=== PATIENT | male | born 1975 | race Caucasian/White ===

== ENCOUNTER → 2019-11-10 13:35 | Outpatient (BNVA) | payer SELFPAY | PROVIDERS: Family Provider Family Medicine; PCP Family Medicine; Visit Provider Anesthesiology | DX: M54.5 Low back pain (principal); M79.652 Pain in left thigh; M79.651 Pain in right thigh; M50.20 Other cervical disc displacement, unspecified cervical region; F17.210 Nicotine dependence, cigarettes, uncomplicated; Z71.6 Tobacco abuse counseling; Z79.891 Long term (current) use of opiate analgesic | CPT/HCPCS: 99214 ==

== ENCOUNTER → 2020-03-08 08:17 | Outpatient (BNVA) | payer SELFPAY | PROVIDERS: Family Provider Family Medicine; PCP Family Medicine; Visit Provider Anesthesiology | DX: M54.41 Lumbago with sciatica, right side (principal); M50.20 Other cervical disc displacement, unspecified cervical region; F17.200 Nicotine dependence, unspecified, uncomplicated; Z79.891 Long term (current) use of opiate analgesic | CPT/HCPCS: 99213; 99214 ==

== ENCOUNTER → 2020-05-08 09:08 | Outpatient (BNVA) | payer SELFPAY | PROVIDERS: Family Provider Family Medicine; PCP Family Medicine; Visit Provider Anesthesiology | DX: M54.5 Low back pain (principal); M50.20 Other cervical disc displacement, unspecified cervical region; Z79.891 Long term (current) use of opiate analgesic | CPT/HCPCS: 99213; 99214 ==

== ENCOUNTER → 2020-07-05 09:48 | Outpatient (BNVA) | payer SELFPAY | PROVIDERS: Family Provider Family Medicine; PCP Family Medicine; Visit Provider Anesthesiology | DX: M54.41 Lumbago with sciatica, right side (principal); M50.20 Other cervical disc displacement, unspecified cervical region; Z87.891 Personal history of nicotine dependence; Z71.6 Tobacco abuse counseling; Z79.891 Long term (current) use of opiate analgesic | CPT/HCPCS: 99214 ==

== ENCOUNTER → 2020-09-04 07:58 | Outpatient (BNVA) | payer SELFPAY | PROVIDERS: Family Provider Family Medicine; PCP Family Medicine; Visit Provider Anesthesiology | DX: M54.41 Lumbago with sciatica, right side (principal); M50.20 Other cervical disc displacement, unspecified cervical region; F17.200 Nicotine dependence, unspecified, uncomplicated; Z79.891 Long term (current) use of opiate analgesic | CPT/HCPCS: 99213; 99214 ==

== ENCOUNTER → 2020-11-05 10:35 | Outpatient (BNVA) | payer SELFPAY | PROVIDERS: Family Provider Family Medicine; PCP Family Medicine; Visit Provider Anesthesiology | DX: M54.41 Lumbago with sciatica, right side (principal); M50.20 Other cervical disc displacement, unspecified cervical region; F17.200 Nicotine dependence, unspecified, uncomplicated; Z79.891 Long term (current) use of opiate analgesic | CPT/HCPCS: 99213 ==

== ENCOUNTER → 2021-01-03 10:17 | Outpatient (BNVA) | payer SELFPAY | PROVIDERS: Family Provider Family Medicine; PCP Family Medicine; Visit Provider Anesthesiology | DX: G89.29 Other chronic pain (principal); M54.5 Low back pain; M50.20 Other cervical disc displacement, unspecified cervical region; F17.210 Nicotine dependence, cigarettes, uncomplicated; Z79.891 Long term (current) use of opiate analgesic | CPT/HCPCS: 99214 ==

== ENCOUNTER → 2021-02-20 08:21 | Outpatient (BNVA) | payer SELFPAY | PROVIDERS: Family Provider Family Medicine; PCP Family Medicine; Visit Provider Anesthesiology | DX: G89.29 Other chronic pain (principal); M50.20 Other cervical disc displacement, unspecified cervical region; M54.5 Low back pain; Z79.891 Long term (current) use of opiate analgesic | CPT/HCPCS: 99214 ==

== ENCOUNTER → 2021-05-02 09:40 | Outpatient (BNVA) | payer SELFPAY | PROVIDERS: Family Provider Family Medicine; PCP Family Medicine; Visit Provider Nurse Practitioner | DX: G89.29 Other chronic pain (principal); M54.5 Low back pain; M50.20 Other cervical disc displacement, unspecified cervical region; F17.210 Nicotine dependence, cigarettes, uncomplicated; Z79.891 Long term (current) use of opiate analgesic; Z71.6 Tobacco abuse counseling | CPT/HCPCS: 99215 ==

== ENCOUNTER → 2021-06-25 08:36 | Outpatient (BNVA) | payer SELFPAY | PROVIDERS: Family Provider Family Medicine; PCP Family Medicine; Visit Provider Anesthesiology | DX: G89.29 Other chronic pain (principal); M54.5 Low back pain; M50.20 Other cervical disc displacement, unspecified cervical region; Z87.891 Personal history of nicotine dependence; Z79.891 Long term (current) use of opiate analgesic | CPT/HCPCS: 99214 ==

== ENCOUNTER 2021-08-17 16:01 | Emergency (ER) | payer SELFPAY ==
[2021-08-17 16:07] VITALS: PULSE 73; RESP 20; TEMP 36.7; O2SAT 98; BMI 19.9
--- NOTE | 2021-08-17 16:27 | ECG_ITS ---
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 Measurements Intervals Laura Rate: 67 P: 46 CO: 151 QRS: 14 QRSD: 96 T: 50 QT: 383 QTc: 405 Interpretive Statements SINUS RHYTHM POSSIBLE LEFT ATRIAL ENLARGEMENT [-0.1mV P-WAVE IN V1/V2] No previous ECG available for comparison Electronically Signed On 08-19-2021 12:43:11 FLIGHT OPERATIONS INSPECTOR by Paige Vergara M.D. [id number]
--- NOTE | 2021-08-17 16:27 | XRR_ITS ---
PROCEDURE INFORMATION: Exam: XR Chest Exam date and time: 08/17/2021 4:27 PM Age: 45 years old Clinical indication: Pain; Chest pressure; Additional info: Cp TECHNIQUE: Imaging protocol: XR of the chest. Views: 1 view. COMPARISON: MRI Cervical Spine w/o* [id number] 10/16/2015 10:10 AM FINDINGS: Lungs: Calcified left hilar nodes and/or mediastinal nodes and/or lung granulomas consistent with old granulomatous disease. Mildly hyperaerated lungs consistent with deep inspiratory effort vs reactive airway disease vs mild COPD . Pleural spaces: Unremarkable. No pleural effusion. No pneumothorax. Heart/Mediastinum: Unremarkable. No cardiomegaly. Bones/joints: Unremarkable. XR/XR chest 1V portable [id number] IMPRESSION: Mildly hyperaerated lungs consistent with deep inspiratory effort vs reactive airway disease vs mild COPD . Radiation Dose CTDIVOL = (mGy): DLP = (mGy-cm)
--- NOTE | 2021-08-17 16:28 | ED_ITS ---
Documented by User: Royer Li MD 08/17/21 17:58 HPI - Chest Pain General: Chief Complaint: Chest Pain Stated Complaint: SOB AND CHEST PAINS Time Seen by Provider: 08/17/21 16:21 History of Present Illness: HPI narrative: 45-year-old male presents with chest pain. States started at rest approximately 2 hours prior to arrival. Is not exertional or pleuritic. He is PERC negative. Describes it as achiness does not radiate specifically does not radiate back. Denies any drug use. Denies lower extremity pain or swelling. Denies nausea vomiting fever cough. Review of Systems Narrative: - CONSTITUTIONAL: Denies weight loss, fever and chills. - HEENT: Denies changes in vision and hearing. - RESPIRATORY: Denies SOB and cough. - CV: As above - GI: Denies abdominal pain, nausea, vomiting and diarrhea. - : Denies dysuria and urinary frequency. - MSK: Denies myalgia and joint pain. - SKIN: Denies rash and pruritus. - NEUROLOGICAL: Denies headache, weakness, numbness and syncope. - PSYCHIATRIC: Denies suicidal ideation PFSH ED PFSH: Medical History Back pain, lumbosacral Chronic neck pain Encounter for long-term use of opiate analgesic Opioid contract exists Protrusion of cervical intervertebral disc Tobacco use disorder Family History Other CAD (coronary artery disease) Social History Second hand smoke exposure: Yes Alcohol intake: never History of recent travel: No Physical Exam Narrative: EXAM NARRATIVE: - GENERAL: Alert and oriented x 3. No acute distress. Well-nourished. - EYES: EOMI. Anicteric. - HENT: Atraumatic, no C-spine tenderness. Moist mucous membranes. No scleral icterus. No cervical lymphadenopathy. - LUNGS: Clear to auscultation bilaterally. No accessory muscle use. Equal lung sounds bilaterally. No respiratory distress. - CARDIOVASCULAR: Regular rate and rhythm. No murmur. No JVD. - ABDOMEN: Soft, non-tender and non-distended. Negative CVA tenderness bilaterally, no rebound or guarding, negative Hua sign. No palpable masses. - EXTREMITIES: No edema. Non-tender. -Back: Has scoliosis - SKIN: No rashes or lesions. Warm. - NEUROLOGIC: No meningismus or focal neurological deficits. CN II-XII grossly intact. - PSYCHIATRIC: Cooperative. Appropriate mood and affect. Course Vital Signs: Vital signs: Vital Signs Temperature 98.1 F 08/17/21 16:07 Pulse Rate 77 08/17/21 20:17 Respiratory Rate 18 08/17/21 20:17 Blood Pressure 129/77 08/17/21 20:17 Pulse Oximetry 98 08/17/21 20:17 MDM - Chest Pain MDM Narrative: Medical decision making narrative: 45-year-old presents due to chest pain. Physical exam unremarkable except for presence of scoliosis. He is PERC negative. EKG does not reveal any sign of acute ischemia or other acute abnormality. Lab work and imaging is currently pending. Patient signed out to Dr. Toro. Lab Data: Labs: Lab Results 08/17/21 08/17/21 08/17/21 16:33 16:33 16:33 WBC 4.5 10^3/uL 10^3/ uL (4.0-10.0) RBC 4.47 10^6/uL 10^6 /uL (4.1-5.3) Hgb 13.9 g/dL g/dL (11.7-16.6) Hct 41.1 % L % (42.0-52.0) MCV 91.9 fl fl (80-94) MCH 31.1 pg pg (28.0-34.0) MCHC 33.8 g/dL g/dL (30.0-36.0) RDW 11.2 % L % (12.1-15.1) Plt Count 266 10^3/cmm 10^3 /cmm (130-400) MPV 9.5 fL fL (7.4-10.4) Neut % (Auto) 65.0 % % Lymph % (Auto) 26.2 % % [place] % (Auto) 8.1 % % Eos % (Auto) 0.0 % % Baso % (Auto) 0.7 % % Neut # (Auto) 2.91 10^3/uL 10^3 /uL (1.8-7.7) Lymph # (Auto) 1.2 10^3/uL 10^3/ uL (0.8-4.8) [place] # (Auto) 0.4 10^3/uL 10^3/ uL (0.2-0.9) Eos # (Auto) 0.0 10^3/uL 10^3/ uL (0.0-0.8) Baso # (Auto) 0.0 10^3/uL 10^3/ uL (0.0-0.1) Nucleated RBC % (a uto) 0 % % Nucleated RBCs # 0.0 /100WBC /100W BC Sodium 139 mmol/L mmol/L (136-145) Potassium 4.5 mmol/L mmol/L (3.5-5.1) Chloride 99 mmol/L mmol/L (98-107) Carbon Dioxide 26 mmol/L mmol/L (22-29) Anion Gap 18.5 (5-19) BUN 10 mg/dL mg/dL (6-20) Creatinine 0.9 mg/dL mg/dL (0.7-1.2) GFR Calculation 90.8 mL/min mL/mi n (90-130) Glucose 79 mg/dL mg/dL (65-115) Calculated Osmolal ity 286 mOsm/kg mOsm/ kg (285-295) Calcium 8.8 mg/dL mg/dL (8.5-10.5) Total Bilirubin 0.2 mg/dL mg/dL (0.15-1.2) AST 33 U/L U/L (0-40) ALT 25 U/L U/L (0-41) Alkaline Phosphata se 84 IU/L IU/L (40-130) Troponin T Baselin e 6 ng/L ng/L (0-15) Troponin T 120 Min grand traverse Delta Troponin T NT-Pro-B Natriuret Pep 7 pg/mL pg/mL (0-125) Total Protein 7.1 g/dL g/dL (6.6-8.7) Albumin 4.1 g/dL g/dL (3.5-5.2) Globulin 3.0 g/dL g/dL (1.3-4.6) Lipase 25 U/L U/L (13-60) SARS-CoV-2 Ag (Rap id) 08/17/21 08/17/21 16:40 18:31 WBC RBC Hgb Hct MCV MCH MCHC RDW Plt Count MPV Neut % (Auto) Lymph % (Auto) [place] % (Auto) Eos % (Auto) Baso % (Auto) Neut # (Auto) Lymph # (Auto) [place] # (Auto) Eos # (Auto) Baso # (Auto) Nucleated RBC % (a uto) Nucleated RBCs # Sodium Potassium Chloride Carbon Dioxide Anion Gap BUN Creatinine GFR Calculation Glucose Calculated Osmolal ity Calcium Total Bilirubin AST ALT Alkaline Phosphata se Troponin T Baselin e Troponin T 120 Min grand traverse 6.42 ng/L ng/L (0-15) Delta Troponin T 0.42 ABS# ABS# (0-10) NT-Pro-B Natriuret Pep Total Protein Albumin Globulin Lipase SARS-CoV-2 Ag (Rap id) Negative (Negative) EKG Data^: EKG 1: Other EKG comments: Sinus rhythm rate of 67, no signs of Brugada, WPW, prolonged QT, HOCM, or acute ischemia Discharge Plan Discharge Patient Disposition: Home Clinical Impression: Chest pain Qualifiers: Chest pain type: unspecified Qualified Code(s): R07.9 - Chest pain, unspecified Condition: Stable Prescriptions: New Prevacid 30 mg capsule,delayed release(DR/EC) 30 mg PO DAILY Qty: 30 RF: 0 No Action metoprolol tartrate 50 mg tablet 50 mg PO BID RF: 0 methadone 10 mg Tablet See Rx Instructions .ROUTE .COMPLEX RF: 0 Discharge Orders: Discharge ED (Routine); Ordered 08/17/21 Ordered By: Portillo Toro Referrals: Kwan Nieves [Primary Care Provider] - 4-7 days Discharge Diet: Advance as tolerated Discharge Activity: Resume usual activity Patient Instructions: Chest Pain (ED), Opioid Safety Activity Restrictions/Additional Instructions: Return for worsening chest pain, shortness of breath, fever greater than 100, cough with sputum production, other concerning symptoms. Coding Level of Care Code ED Compensation And Benefits Advisor for Chg Fwd Documented by User: Portillo Toro DO 08/17/21 23:36 HPI - Chest Pain General: Chief Complaint: Chest Pain Stated Complaint: SOB AND CHEST PAINS Time Seen by Provider: 08/17/21 16:21 PFSH ED PFSH: Medical History Back pain, lumbosacral Chronic neck pain Encounter for long-term use of opiate analgesic Opioid contract exists Protrusion of cervical intervertebral disc Tobacco use disorder Family History Other CAD (coronary artery disease) Social History Second hand smoke exposure: Yes Alcohol intake: never History of recent travel: No Course Vital Signs: Vital signs: Vital Signs Temperature 98.1 F 08/17/21 16:07 Pulse Rate 77 08/17/21 20:17 Respiratory Rate 18 08/17/21 20:17 Blood Pressure 129/77 08/17/21 20:17 Pulse Oximetry 98 08/17/21 20:17 MDM - Chest Pain MDM Narrative: Medical decision making narrative: 45-year-old male signed out to me at shift change by the previous physician. This gentleman has had chest pain. Nonspecific in nature his white blood cell count is 4.5. Hemoglobin 13.9. Chest x-ray is negative. BMP is normal. His troponin did not change at 2-hour from a level of 6. He was quite anxious evidently, he has been given Ativan. He was given morphine for pain. He is improved. He will be allowed home Lab Data: Labs: Lab Results 08/17/21 08/17/21 08/17/21 16:33 16:33 16:33 WBC 4.5 10^3/uL 10^3/ uL (4.0-10.0) RBC 4.47 10^6/uL 10^6 /uL (4.1-5.3) Hgb 13.9 g/dL g/dL (11.7-16.6) Hct 41.1 % L % (42.0-52.0) MCV 91.9 fl fl (80-94) MCH 31.1 pg pg (28.0-34.0) MCHC 33.8 g/dL g/dL (30.0-36.0) RDW 11.2 % L % (12.1-15.1) Plt Count 266 10^3/cmm 10^3 /cmm (130-400) MPV 9.5 fL fL (7.4-10.4) Neut % (Auto) 65.0 % % Lymph % (Auto) 26.2 % % [place] % (Auto) 8.1 % % Eos % (Auto) 0.0 % % Baso % (Auto) 0.7 % % Neut # (Auto) 2.91 10^3/uL 10^3 /uL (1.8-7.7) Lymph # (Auto) 1.2 10^3/uL 10^3/ uL (0.8-4.8) [place] # (Auto) 0.4 10^3/uL 10^3/ uL (0.2-0.9) Eos # (Auto) 0.0 10^3/uL 10^3/ uL (0.0-0.8) Baso # (Auto) 0.0 10^3/uL 10^3/ uL (0.0-0.1) Nucleated RBC % (a uto) 0 % % Nucleated RBCs # 0.0 /100WBC /100W BC Sodium 139 mmol/L mmol/L (136-145) Potassium 4.5 mmol/L mmol/L (3.5-5.1) Chloride 99 mmol/L mmol/L (98-107) Carbon Dioxide 26 mmol/L mmol/L (22-29) Anion Gap 18.5 (5-19) BUN 10 mg/dL mg/dL (6-20) Creatinine 0.9 mg/dL mg/dL (0.7-1.2) GFR Calculation 90.8 mL/min mL/mi n (90-130) Glucose 79 mg/dL mg/dL (65-115) Calculated Osmolal ity 286 mOsm/kg mOsm/ kg (285-295) Calcium 8.8 mg/dL mg/dL (8.5-10.5) Total Bilirubin 0.2 mg/dL mg/dL (0.15-1.2) AST 33 U/L U/L (0-40) ALT 25 U/L U/L (0-41) Alkaline Phosphata se 84 IU/L IU/L (40-130) Troponin T Baselin e 6 ng/L ng/L (0-15) Troponin T 120 Min grand traverse Delta Troponin T NT-Pro-B Natriuret Pep 7 pg/mL pg/mL (0-125) Total Protein 7.1 g/dL g/dL (6.6-8.7) Albumin 4.1 g/dL g/dL (3.5-5.2) Globulin 3.0 g/dL g/dL (1.3-4.6) Lipase 25 U/L U/L (13-60) SARS-CoV-2 Ag (Rap id) 08/17/21 08/17/21 16:40 18:31 WBC RBC Hgb Hct MCV MCH MCHC RDW Plt Count MPV Neut % (Auto) Lymph % (Auto) [place] % (Auto) Eos % (Auto) Baso % (Auto) Neut # (Auto) Lymph # (Auto) [place] # (Auto) Eos # (Auto) Baso # (Auto) Nucleated RBC % (a uto) Nucleated RBCs # Sodium Potassium Chloride Carbon Dioxide Anion Gap BUN Creatinine GFR Calculation Glucose Calculated Osmolal ity Calcium Total Bilirubin AST ALT Alkaline Phosphata se Troponin T Baselin e Troponin T 120 Min [place] 6.42 ng/L ng/L (0-15) Delta Troponin T 0.42 ABS# ABS# (0-10) NT-Pro-B Natriuret Pep Total Protein Albumin Globulin Lipase SARS-CoV-2 Ag (Rap id) Negative (Negative) Discharge Plan Discharge Patient Disposition: Home Clinical Impression: Chest pain Qualifiers: Chest pain type: unspecified Qualified Code(s): R07.9 - Chest pain, unspecified Condition: Stable Prescriptions: New Prevacid 30 mg capsule,delayed release(DR/EC) 30 mg PO DAILY Qty: 30 RF: 0 No Action metoprolol tartrate 50 mg tablet 50 mg PO BID RF: 0 methadone 10 mg Tablet See Rx Instructions .ROUTE .COMPLEX RF: 0 Discharge Orders: Discharge ED (Routine); Ordered 08/17/21 Ordered By: Portillo Toro Referrals: Kwan Nieves [Primary Care Provider] - 4-7 days Discharge Diet: Advance as tolerated Discharge Activity: Resume usual activity Patient Instructions: Chest Pain (ED), Opioid Safety Activity Restrictions/Additional Instructions: Return for worsening chest pain, shortness of breath, fever greater than 100, cough with sputum production, other concerning symptoms. Coding Level of Care Code ED Compensation And Benefits Advisor for Prema Gasca
[2021-08-17] MEDS: nitroglycerin 0.4 mg sublingual Tablet SUBLINGUAL (16:39)
[2021-08-17] MEDS: aspirin 81 mg Chew Tablet 324 MG PO (16:39)
[2021-08-17 16:45] LABS: Basophils % 0.7 %; Hematocrit 41.1 % (42.0-52.0); Hemoglobin 13.9 g/dL (11.7-16.6); Lymphocytes # 1.2 10^3/uL (0.8-4.8); Lymphocytes % 26.2 %; Mean Corpuscular HGB Conc 33.8 g/dL (30.0-36.0); Mean Corpuscular Hemoglobin 31.1 pg (28.0-34.0); Mean Corpuscular Volume 91.9 fl (80-94); Mean Platelet Volume 9.5 fL (7.4-10.4); Monocytes # 0.4 10^3/uL (0.2-0.9); Monocytes % 8.1 %; Neutrophils # 2.91 10^3/uL (1.8-7.7); Nucleated Red Blood Cells % 0 %; Platelet Count 266 10^3/cmm (130-400); Red Blood Count 4.47 10^6/uL (4.1-5.3); Red Cell Distribution Width 11.2 % (12.1-15.1); White Blood Count 4.5 10^3/uL (4.0-10.0)
[2021-08-17 16:51] VITALS: BP 108/74; PULSE 84; RESP 18; O2SAT 97
[2021-08-17 17:31] LABS: Troponin(5th) Baseline 6 ng/L (0-15)
[2021-08-17] MEDS: LORazepam 2 mg/mL INJ 1 mL 0.5 MG IM (17:40)
[2021-08-17 17:49] LABS: Alanine Aminotransferase 25 U/L (0-41); Albumin Level 4.1 g/dL (3.5-5.2); Alkaline Phosphatase 84 IU/L (40-130); Blood Urea Nitrogen 10 mg/dL (6-20); Calcium 8.8 mg/dL (8.5-10.5); Carbon Dioxide 26 mmol/L (22-29); Chloride 99 mmol/L (98-107); Glomerular Filtration Rate 90.8 mL/min (90-130); Glucose 79 mg/dL (65-115); Lipase 25 U/L (13-60); NT Pro B Type Natriuretic Pept 7 pg/mL (0-125); Osmolality Calculated 286 mOsm/kg (285-295); Sodium 139 mmol/L (136-145); Total Bilirubin 0.2 mg/dL (0.15-1.2); Total Protein 7.1 g/dL (6.6-8.7)
[2021-08-17 17:52] LABS: Anion Gap 18.5 (5-19); Aspartate Amino Transferase 33 U/L (0-40); Potassium 4.5 mmol/L (3.5-5.1)
[2021-08-17 18:16] LABS: SARS Covid-2 Antigen Negative (Negative)
[2021-08-17 18:52] LABS: Troponin 5 2HR 6.42 ng/L (0-15); Troponin 5 2HR Delta 0.42 ABS# (0-10)
[2021-08-17] MEDS: morphine 4 mg/mL SDV 1 mL IVP ×2 (19:14→20:06)
[2021-08-17] MEDS: ondansetron 2 mg/ML SDV 2 mL 4 MG IVP (19:14)
[2021-08-17 20:06] VITALS: RESP 18; O2SAT 98
[2021-08-17 20:17] VITALS: BP 129/77; PULSE 77; RESP 18; O2SAT 98
== END 2021-08-17 20:15 | disposition home or self-care (01) ==
PROVIDERS: Emergency Medicine; Emergency Provider Emergency Medicine; PCP Family Medicine
DX: R07.9 Chest pain, unspecified (principal); Z77.22 Contact with and (suspected) exposure to environmental tobacco smoke (acute) (chronic); Z20.822 Contact with and (suspected) exposure to COVID-19
CPT/HCPCS: 71045; 80053; 83690; 83880; 84484; 85025; 87426; 93005; 96372; 96374; 96375; 96376; 99283; J2060; J2270; J2405

== ENCOUNTER → 2021-08-26 08:26 | Outpatient (BNVA) | payer SELFPAY | PROVIDERS: PCP Family Medicine; Visit Provider Anesthesiology | DX: G89.29 Other chronic pain (principal); M50.20 Other cervical disc displacement, unspecified cervical region; M54.50 Low back pain, unspecified; Z79.891 Long term (current) use of opiate analgesic; Z87.891 Personal history of nicotine dependence | CPT/HCPCS: 99214 ==

== ENCOUNTER 2021-10-03 12:01 | Emergency (ER) | payer SELFPAY ==
[2021-10-03 12:07] VITALS: BP 140/79; PULSE 97; RESP 16; TEMP 37.3; O2SAT 98; BMI 19.9
--- NOTE | 2021-10-03 12:25 | ED_ITS ---
HPI - General Adult General: Chief complaint: General Medical Stated complaint: NEUROPATHY RELATED PAIN Time Seen by Provider: 10/03/21 12:19 History of Present Illness: HPI narrative: Patient is a 45-year-old male with history of chronic opiate dependence currently on methadone prescribed by our pain clinic emergency after patient ran out of methadone yesterday. Last dose was yesterday afternoon. Since then, patient reports drawl symptoms earlier this morning. Patient describes shakiness, generalized weakness, malaise and not feeling well. Patient denies any nausea vomiting, abdominal pain, chest pain, shortness of breath, fever chills. He tells that he is not able to get his medicine refilled until he is seen by the pain clinic again next week. Onset: earlier this AM Duration:ongoing Location:home Severity:moderate Review of Systems Narrative: Constitutional: No fever, no chills. HEENT: No vision changes CV: No chest pain, no palpitations PULM: no cough, no dyspnea. GI: No abdominal pain, no N/V/D. : No dysuria MSKEL: No muscle pain SKIN: No new rashes, no lesions. NEURO: No headache, no focal weakness. HEME: No visible bruises PSYCH: Normal mood PFSH ED PFSH: Medical History (Updated 10/06/21 @ 16:06 by Mamadou Smith MD) Back pain, lumbosacral Chronic neck pain Encounter for long-term use of opiate analgesic Opioid contract exists Protrusion of cervical intervertebral disc Family History Other CAD (coronary artery disease) Social History Second hand smoke exposure: Yes Alcohol intake: never History of recent travel: No Physical Exam Narrative: EXAM NARRATIVE: Head: Atraumatic Eyes: PERRL, conjunctiva without injection ENT: Mucous membrane moist NECK: Supple, ROM intact LUNGS: LCTAB, no crackles/rhonchi CV: RRR ABDOMEN: Soft, nontender in all quadrants EXTREMITY: Normal ROM, +tremulousness SKIN: No rash or erythema, +diaphoreiss NEURO: Awake and alert, no focal motor deficits PSYCH: Normal mood and affect Course Vital Signs: Vital signs: Vital Signs Temperature 99.2 F 10/03/21 12:07 Pulse Rate 95 10/03/21 12:44 Respiratory Rate 22 H 10/03/21 12:44 Blood Pressure 143/97 10/03/21 12:44 Pulse Oximetry 100 10/03/21 12:44 MDM - General Adult MDM Narrative: Medical decision making narrative: 45-year-old male presenting to the emergency room for evaluation of acute opiate withdrawal after he has been off his methadone. Exam, patient is hemodynamically stable. With mild diaphoresis and tremors. No suspicion for acute alcohol withdrawal at this present time. Will not prescribe methadone. Workup: CBC, BMP Intervention: IVF, clonidine, buprenorphine 4mg On reassessment at 1:30pm, she reports symptomatic improvement. Patient reports that his withdrawal symptoms has lessened at this time. At the present time, I informed patient I am not able to write him a prescription for methadone. Patient struck to follow-up with his pain specialist for management of symptoms. Rx clonidine 0.1mg x 3 PRN agitation. Because patient will not be able to be seen at the pain clinic over the weekend, I have performed shared decision making with patient and patient agrees to take 1 tablet of 4 mg of buprenorphine should he needed over the weekend. Patient has one tablet of buprenorphine to go home with today. Disposition: Discharge. Patient counseled regarding diagnostic impression, treatment plan. Patient given ED strict return precautions to return for continuation, worsening, or development of new symptoms. Instructed to f/u w/ pain specialist regarding symptoms today. Patient verbalized understanding. Lab Data: Labs: Lab Results 10/03/21 10/03/21 12:30 12:30 WBC 6.1 10^3/uL 10^3/ uL (4.0-10.0) RBC 5.45 10^6/uL H 10 ^6/uL (4.1-5.3) Hgb 16.6 g/dL g/dL (11.7-16.6) Hct 49.7 % % (42.0-52.0) MCV 91.2 fl fl (80-94) MCH 30.5 pg pg (28.0-34.0) MCHC 33.4 g/dL g/dL (30.0-36.0) RDW 12.3 % % (12.1-15.1) Plt Count 245 10^3/cmm 10^3 /cmm (130-400) MPV 9.8 fL fL (7.4-10.4) Neut % (Auto) 84.6 % % Lymph % (Auto) 10.2 % % [place] % (Auto) 4.6 % % Eos % (Auto) 0.0 % % Baso % (Auto) 0.3 % % Neut # (Auto) 5.11 10^3/uL 10^3 /uL (1.8-7.7) Lymph # (Auto) 0.6 10^3/uL L 10^ 3/uL (0.8-4.8) [place] # (Auto) 0.3 10^3/uL 10^3/ uL (0.2-0.9) Eos # (Auto) 0.0 10^3/uL 10^3/ uL (0.0-0.8) Baso # (Auto) 0.0 10^3/uL 10^3/ uL (0.0-0.1) Nucleated RBC % (a uto) 0 % % Nucleated RBCs # 0.0 /100WBC /100W BC Sodium 139 mmol/L mmol/L (136-145) Potassium 4.0 mmol/L mmol/L (3.5-5.1) Chloride 99 mmol/L mmol/L (98-107) Carbon Dioxide 25 mmol/L mmol/L (22-29) Anion Gap 19.0 (5-19) BUN 15 mg/dL mg/dL (6-20) Creatinine 0.9 mg/dL mg/dL (0.7-1.2) GFR Calculation 90.8 mL/min mL/mi n (90-130) Glucose 135 mg/dL H mg/dL (65-115) Calculated Osmolal ity 291 mOsm/kg mOsm/ kg (285-295) Calcium 8.7 mg/dL mg/dL (8.5-10.5) Discharge Plan Discharge Patient Disposition: Home Clinical Impression: Opiate withdrawal Condition: Stable Prescriptions: New clonidine HCl 0.1 mg tablet 0.1 mg PO DAILY 10 Days Qty: 10 RF: 0 No Action metoprolol tartrate 50 mg tablet 50 mg PO BID RF: 0 methadone 10 mg tablet 20 mg PO Q6H 30 Days Qty: 240 RF: 0 multivitamin Tablet 1 tab PO DAILY RF: 0 trazodone 150 mg tablet 150 mg PO BEDTIME PRN (Reason: Sleep) RF: 0 Discharge Orders: Discharge ED (Routine); Ordered 10/03/21 Ordered By: Mamadou Smith Referrals: Kwan Nieves [Primary Care Provider] - Discharge Diet: Advance as tolerated Discharge Activity: Resume usual activity Patient Instructions: Opioid Safety Activity Restrictions/Additional Instructions: Follow-up with your pain specialist to get your methadone refilled. Come back to the emergency room if you have any new or concerning symptoms. Coding Level of Care Code ED Laborer Operator for Prema Gasca
[2021-10-03] MEDS: buprenorphine-naloxone 4-1 mg Film 1 EACH SUBLINGUAL ×2 (12:36→14:25)
[2021-10-03] MEDS: cloNIDine 0.1 mg Tablet PO (12:40)
[2021-10-03] MEDS: sodium chloride 0.9% 1,000 ML 999 ML IV (12:43)
[2021-10-03 12:44] VITALS: BP 143/97; PULSE 95; RESP 22; O2SAT 100
[2021-10-03 12:44] LABS: Basophils % 0.3 %; Hematocrit 49.7 % (42.0-52.0); Hemoglobin 16.6 g/dL (11.7-16.6); Lymphocytes # 0.6 10^3/uL (0.8-4.8); Lymphocytes % 10.2 %; Mean Corpuscular HGB Conc 33.4 g/dL (30.0-36.0); Mean Corpuscular Hemoglobin 30.5 pg (28.0-34.0); Mean Corpuscular Volume 91.2 fl (80-94); Mean Platelet Volume 9.8 fL (7.4-10.4); Monocytes # 0.3 10^3/uL (0.2-0.9); Monocytes % 4.6 %; Neutrophils # 5.11 10^3/uL (1.8-7.7); Neutrophils % 84.6 %; Nucleated Red Blood Cells % 0 %; Platelet Count 245 10^3/cmm (130-400); Red Blood Count 5.45 10^6/uL (4.1-5.3); Red Cell Distribution Width 12.3 % (12.1-15.1); White Blood Count 6.1 10^3/uL (4.0-10.0)
[2021-10-03 13:04] LABS: Blood Urea Nitrogen 15 mg/dL (6-20); Calcium 8.7 mg/dL (8.5-10.5); Carbon Dioxide 25 mmol/L (22-29); Chloride 99 mmol/L (98-107); Glomerular Filtration Rate 90.8 mL/min (90-130); Glucose 135 mg/dL (65-115); Osmolality Calculated 291 mOsm/kg (285-295); Sodium 139 mmol/L (136-145)
== END 2021-10-03 14:34 | disposition home or self-care (01) ==
PROVIDERS: Emergency Provider Emergency Medicine; PCP Family Medicine
DX: F11.23 Opioid dependence with withdrawal (principal); Z79.891 Long term (current) use of opiate analgesic; Z77.22 Contact with and (suspected) exposure to environmental tobacco smoke (acute) (chronic)
CPT/HCPCS: 80048; 85025; 96360; 99284; 99291; J0573; J7030

== ENCOUNTER 2021-10-04 23:59 | Emergency (ER) | payer SELFPAY ==
[2021-10-05 00:04] VITALS: BP 135/78; PULSE 84; RESP 21; TEMP 36.7; O2SAT 97; BMI 19.9
--- NOTE | 2021-10-05 00:30 | ED_ITS ---
HPI - General Adult General: Chief complaint: General Medical Stated complaint: pain med withdraw Time Seen by Provider: 10/05/21 00:05 Source: patient Mode of arrival: ambulatory Limitations: no limitations History of Present Illness: HPI narrative: 45-year-old male who is on methadone has been going the pain clinic here in town states that it closed and he is ran out of his methadone he states that he has been having increasing pain and feeling like he is having withdrawals. He denies any worsening improving factors at this time. Patient has no high blood pressure or tachycardia he has had no vomiting he states he had some slight diarrhea at home. Associated symptoms: Reports nausea; Deny chest pain, dyspnea, headache(s), rash or vomiting Review of Systems Const: Denies: fever(s), chills, body aches or change in appetite Eyes: Denies: blurry vision or eye discomfort ENMT: Denies: throat pain or dental pain Card: Denies: chest pain Resp: Denies: dyspnea GI: Reports: nausea; Denies: abdominal pain, vomiting or diarrhea : Denies: dysuria Musc: Reports: neck pain and back pain Skin/Breast: Denies: rash Neuro: Denies: headache(s) Psych: Denies: depression Rick/Lymph: Denies: easy bruising All/Imm: Denies: urticaria PFSH ED PFSH: Medical History (Updated 10/05/21 @ 00:31 by Delia Klein MD) Back pain, lumbosacral Chronic neck pain Encounter for long-term use of opiate analgesic Opioid contract exists Protrusion of cervical intervertebral disc Family History Other CAD (coronary artery disease) Social History Second hand smoke exposure: Yes Alcohol intake: never History of recent travel: No Physical Exam Const: COMMON NORMALS: no acute distress, patient oriented x3 and healthy appearing HENMT: COMMON NORMALS: normocephalic and atraumatic HEAD & SCALP: normocephalic and atraumatic Eye: COMMON NORMALS: Equal, round and reactive pupils present and EOMs intact bilaterally PUPIL: Yes Equal, round and reactive pupils present Neck/C-Spine: COMMON NORMALS: full ROM and supple Chest: COMMONS NORMALS: normal inspection of the chest and normal palpation of entire chest wall Resp: COMMON NORMALS: normal respiratory effort, No retractions, No use of accessory muscles and clear to auscultation bilaterally AUSCULTATION: clear to auscultation bilaterally Cardio: COMMON NORMALS: regular rate, regular rhythm and No murmurs present (Cardio) RATE: regular rate RHYTHM: regular rhythm GI: COMMON NORMALS: Normal to inspection, nondistended, normoactive bowel sounds present, Soft to palpation, non-tender and no masses PALPATION: Yes Soft to palpation Extremity: COMMON NORMALS: normal to inspection and full ROM Neuro: COMMON NORMALS: patient oriented x3, moves all extremities and no focal motor deficits Psych: COMMON NORMALS: mental status grossly normal, Normal thought process present and cooperative THOUGHT PROCESS: Normal thought process present Skin: COMMON NORMALS: no rashes or lesions noted and no wounds GENERAL SKIN EXAM: no rashes or lesions noted Course Vital Signs: Vital signs: Vital Signs Temperature 98.0 F 10/05/21 00:04 Pulse Rate 84 10/05/21 00:04 Respiratory Rate 21 H 10/05/21 00:04 Blood Pressure 135/78 10/05/21 00:04 Pulse Oximetry 97 10/05/21 00:04 MDM - General Adult MDM Narrative: Medical decision making narrative: Patient presents with chronic pain he supposed see another pain specialist on Wednesday he is well- appearing here gave him on Suboxone he stable for discharge is to follow-up and return if worsening. Discharge Plan Discharge Patient Disposition: Home Clinical Impression: Chronic pain Qualifiers: Chronic pain type: other chronic pain Qualified Code(s): G89.29 - Other chronic pain Condition: Stable Prescriptions: No Action metoprolol tartrate 50 mg tablet 50 mg PO BID RF: 0 methadone 10 mg tablet See Rx Instructions .ROUTE .COMPLEX 30 Days Qty: 450 RF: 0 clonidine HCl 0.1 mg tablet 0.1 mg PO DAILY 10 Days Qty: 10 RF: 0 multivitamin Tablet 1 tab PO DAILY RF: 0 trazodone 150 mg tablet 150 mg PO BEDTIME PRN (Reason: Sleep) RF: 0 Discharge Orders: Discharge ED (Routine); Ordered 10/05/21 Ordered By: Delia Klein Referrals: Kwan Nieves [Primary Care Provider] - 1-3 days Discharge Diet: Advance as tolerated Discharge Activity: Resume usual activity Patient Instructions: Chronic Pain (ED) Coding Level of Care Code ED Occupational Psychologist for Prema Gasca
[2021-10-05] MEDS: buprenorphine-naloxone 4-1 mg Film 1 EACH SUBLINGUAL (00:47)
--- NOTE | 2021-10-05 00:48 | PC.NURSE ---
Reports that the 4 mg was not enough last time and that he would probably need another 4 mg to make the s/s subside. asking about places that would help with detox and is working with counselor manuel hoping to get a bed tomorrow. will monitor.
--- NOTE | 2021-10-05 01:08 | PC.NURSE ---
noted with decreased fidgeting. states some better but w ith concerns for return of s/s because he received more medication on previous visit. discussed with MD. patient discharged home.
== END 2021-10-05 01:09 | disposition home or self-care (01) ==
PROVIDERS: Emergency Provider Emergency Medicine; PCP Family Medicine
DX: G89.29 Other chronic pain (principal); Z79.891 Long term (current) use of opiate analgesic; Z77.22 Contact with and (suspected) exposure to environmental tobacco smoke (acute) (chronic)
CPT/HCPCS: 99283; 99291; J0573

== ENCOUNTER 2021-10-06 14:27 | Emergency (ER) | payer SELFPAY ==
[2021-10-06 15:12] VITALS: BP 144/95; RESP 20; TEMP 37.2; O2SAT 97; BMI 21.8
--- NOTE | 2021-10-06 15:32 | PC.NURSE ---
spoke with pharmacist on phone and unable to give buprenorphrine 2ndary to emergency opoid prescribing guidelines. Provider Dr. MORALES notified.
--- NOTE | 2021-10-06 15:57 | W.ED.GENADLT ---
HPI - General Adult General: Chief complaint: Abdominal Pain Stated complaint: WITHDRAWAL/ALL OVER PAIN,SHAKY,TROUBLE SLEEPING Time Seen by Provider: 10/06/21 15:07 History of Present Illness: HPI narrative: Patient is a 45-year-old male with history of methadone use who ran out of his prescription few days ago presenting to the emergency room in acute opiate withdrawal. Patient tells me that he was seen recently for opiate withdrawal and has been doing well up until today. Patient tells me that he also has an appointment tomorrow with Dr. Martel's office because of his withdrawal symptoms him, and he decided to come to the emergency room for evaluation. He denies any other active opiate use and reiterates his desire to quit. Onset: Since 10/03 Duration: ongoing Location:home Severity:moderate Review of Systems Narrative: Constitutional: No fever, no chills. +fatigue HEENT: No vision changes CV: No chest pain, no palpitations PULM: no cough, no dyspnea. GI: No abdominal pain, no N/V/D. : No dysuria MSKEL: No muscle pain, +generalized shaking SKIN: No new rashes, no lesions. NEURO: No headache, no focal weakness. +generalized weakness HEME: No visible bruises PSYCH: Normal mood, +agitaiton PFSH ED PFSH: Medical History (Updated 10/06/21 @ 16:06 by Mamadou Smith MD) Back pain, lumbosacral Chronic neck pain Encounter for long-term use of opiate analgesic Opioid contract exists Protrusion of cervical intervertebral disc Family History Other CAD (coronary artery disease) Social History Second hand smoke exposure: Yes Alcohol intake: never History of recent travel: No Physical Exam Narrative: EXAM NARRATIVE: Head: Atraumatic Eyes: PERRL, conjunctiva without injection ENT: Mucous membrane moist NECK: Supple, ROM intact LUNGS: LCTAB, no crackles/rhonchi CV: RRR ABDOMEN: Soft, nontender in all quadrants EXTREMITY: Normal ROM SKIN: No rash or erythema NEURO: Awake and alert, no focal motor deficits PSYCH: Normal mood and affect Course Vital Signs: Vital signs: Vital Signs Temperature 98.9 F 10/06/21 15:12 Respiratory Rate 20 H 10/06/21 15:12 Blood Pressure 144/95 10/06/21 15:12 Pulse Oximetry 97 10/06/21 15:12 MDM - General Adult MDM Narrative: Medical decision making narrative: Patient is a 45-year-old male ran out of his prescription for methadone presenting to the emergency room for acute opiate withdrawal. On arrival, patient is noted to be in moderate distress, tremulous. No suspicion for alcohol use Patient tells me that he did he does not have his appointment till tomorrow. Case was discussed with Dr. Ying's nursing staff Renee BECKFORD from pain clinic who used with prescribing buprenorphine in the emergency room. It was also discussed with Dr. Rodriges and pharmacy who agrees with emergency release for today's use so that patient can get to pharmacy tomorrow. Symptoms improved after buprenophrine dose. Disposition: Discharge. Patient counseled regarding diagnostic impression, treatment plan. Patient given ED strict return precautions to return for continuation, worsening, or development of new symptoms. Instructed to f/u w/ pain clinic regarding symptoms tomorrow and to get methadone script written. Patient verbalized understanding. Discharge Plan Discharge Patient Disposition: Home Clinical Impression: Opiate withdrawal Condition: Stable Prescriptions: No Action metoprolol tartrate 50 mg tablet 50 mg PO BID RF: 0 methadone 10 mg tablet See Rx Instructions .ROUTE .COMPLEX 30 Days Qty: 450 RF: 0 clonidine HCl 0.1 mg tablet 0.1 mg PO DAILY 10 Days Qty: 10 RF: 0 multivitamin Tablet 1 tab PO DAILY RF: 0 trazodone 150 mg tablet 150 mg PO BEDTIME PRN (Reason: Sleep) RF: 0 Discharge Orders: Discharge ED (Routine); Ordered 10/06/21 Ordered By: Mamadou Smith Referrals: Kwan Nieves [Primary Care Provider] - Discharge Diet: Advance as tolerated Discharge Activity: Resume usual activity Patient Instructions: Opioid Safety Activity Restrictions/Additional Instructions: Please follow up with Dr. Ying's office tomorrow. Come back if you any further issues. Please do not take any more opiates as you were given buphrenorphine. Coding Level of Care Code ED Wire Products Inspector for Prema Gasca
[2021-10-06 16:18] VITALS: BP 144/95
[2021-10-06] MEDS: cloNIDine 0.1 mg Tablet PO (16:18)
[2021-10-06] MEDS: buprenorphine-naloxone 4-1 mg Film 1 EACH SUBLINGUAL (16:18)
[2021-10-06 16:21] VITALS: BP 142/93; PULSE 80; RESP 12; TEMP 36.9; O2SAT 98
--- NOTE | 2021-10-06 16:26 | PC.NURSE ---
reviewed discharge with patient, patient verbalizes understanding of all instructions, and follow up plan. pt ambulated from the ED with his cane
== END 2021-10-06 16:33 | disposition home or self-care (01) ==
PROVIDERS: Emergency Provider Emergency Medicine; PCP Family Medicine
DX: F11.23 Opioid dependence with withdrawal (principal); Z77.22 Contact with and (suspected) exposure to environmental tobacco smoke (acute) (chronic)
CPT/HCPCS: 99283; J0573

== ENCOUNTER 2021-10-29 21:47 | Emergency (ER) | payer SELFPAY ==
--- NOTE | 2021-10-29 21:49 | XRR_ITS ---
PROCEDURE INFORMATION: Exam: XR Chest Exam date and time: 10/29/2021 9:49 PM Age: 45 years old Clinical indication: Pain; Chest pressure; Additional info: Cp TECHNIQUE: Imaging protocol: XR of the chest. Views: 1 view. COMPARISON: CR (CHEST, ) 08/17/2021 4:34 PM FINDINGS: Lungs: Calcified granuloma in the left lung. The lungs are otherwise clear. Calcified left hilar lymph nodes. Pleural spaces: Unremarkable. No pleural effusion. No pneumothorax. Heart/Mediastinum: Unremarkable. No cardiomegaly. Bones/joints: Unremarkable. XR/XR chest 1V portable [id number] IMPRESSION: No acute findings.
--- NOTE | 2021-10-29 21:49 | ECG_ITS ---
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 Measurements Intervals [place] Rate: 139 P: 76 [place]: 142 QRS: 221 QRSD: 90 T: 74 QT: 291 QTc: 443 Interpretive Statements SINUS TACHYCARDIA INDETERMINATE AXIS Compared to ECG 08/17/2021 16:17:43 Indeterminate axis now present Sinus rhythm no longer present Heavy baseline artifact in the limb leads Electronically Signed On 10-30-2021 0:04:37 ELECTRONIC VIDEO GAMES SERVICER by Tammy García M.D. [id number]
[2021-10-29 21:52] VITALS: PULSE 148; RESP 24; O2SAT 96; BMI 21.4
[2021-10-29] MEDS: LORazepam 2 mg/mL INJ 1 mL IVP ×2 (22:08→23:27)
[2021-10-29 22:09] VITALS: BP 184/120; PULSE 136; RESP 23; O2SAT 98
[2021-10-29] MEDS: morphine 4 mg/mL SDV 1 mL IVP (22:09)
[2021-10-29 22:10] LABS: Basophils # 0.1 10^3/uL (0.0-0.1); Basophils % 0.4 %; Hemoglobin 17.2 g/dL (11.7-16.6); Lymphocytes # 1.9 10^3/uL (0.8-4.8); Mean Corpuscular HGB Conc 35.8 g/dL (30.0-36.0); Mean Corpuscular Hemoglobin 31.5 pg (28.0-34.0); Mean Corpuscular Volume 87.9 fl (80-94); Mean Platelet Volume 9.5 fL (7.4-10.4); Monocytes # 1.4 10^3/uL (0.2-0.9); Monocytes % 7.4 %; Neutrophils # 15.19 10^3/uL (1.8-7.7); Neutrophils % 81.7 %; Nucleated Red Blood Cells % 0 %; Platelet Count 325 10^3/cmm (130-400); Red Blood Count 5.46 10^6/uL (4.1-5.3); Red Cell Distribution Width 12.2 % (12.1-15.1); White Blood Count 18.6 10^3/uL (4.0-10.0)
--- NOTE | 2021-10-29 22:18 | W.ED.CHESTPA ---
HPI - Chest Pain General: Chief Complaint: Chest Pain Stated Complaint: chest pain Time Seen by Provider: 10/29/21 21:59 Source: patient Mode of arrival: ambulatory Limitations: no limitations History of Present Illness: 45-year-old male who who states he has been having withdrawals from methadone. He states that he is supposed to get started on Suboxone tomorrow but states that tonight he was having severe withdrawal with anxiety he is actively shaking tachycardic denies any fever. States has been having some chest pain denies any worsening proving factors. Associated symptoms: Deny abdominal pain, dyspnea, fever(s), nausea or vomiting Review of Systems Const: Denies: fever(s), chills, body aches or change in appetite Eyes: Denies: blurry vision or eye discomfort ENMT: Denies: throat pain or dental pain Card: Denies: chest pain Resp: Denies: dyspnea GI: Denies: abdominal pain, nausea, vomiting or diarrhea : Denies: dysuria Musc: Denies: neck pain or back pain Skin/Breast: Denies: rash Neuro: Denies: headache(s) Psych: Reports: anxiety Rick/Lymph: Denies: easy bruising All/Imm: Denies: urticaria PFSH ED PFSH: Medical History Back pain, lumbosacral Chronic neck pain Encounter for long-term use of opiate analgesic Opioid contract exists Protrusion of cervical intervertebral disc Family History Other CAD (coronary artery disease) Social History Second hand smoke exposure: Yes Alcohol intake: never History of recent travel: No Physical Exam Const: COMMON NORMALS: patient oriented x3 and healthy appearing GENERAL APPEARANCE: anxious HENMT: COMMON NORMALS: normocephalic and atraumatic HEAD & SCALP: normocephalic and atraumatic Eye: COMMON NORMALS: Equal, round and reactive pupils present and EOMs intact bilaterally PUPIL: Yes Equal, round and reactive pupils present Neck/C-Spine: COMMON NORMALS: full ROM and supple Chest: COMMONS NORMALS: normal inspection of the chest and normal palpation of entire chest wall Resp: COMMON NORMALS: normal respiratory effort, No retractions, No use of accessory muscles and clear to auscultation bilaterally AUSCULTATION: clear to auscultation bilaterally Cardio: COMMON NORMALS: regular rate, regular rhythm and No murmurs present (Cardio) RATE: regular rate RHYTHM: regular rhythm GI: COMMON NORMALS: Normal to inspection, nondistended, normoactive bowel sounds present, Soft to palpation, non-tender and no masses PALPATION: Yes Soft to palpation Extremity: COMMON NORMALS: normal to inspection and full ROM Neuro: COMMON NORMALS: patient oriented x3, moves all extremities and no focal motor deficits Psych: COMMON NORMALS: mental status grossly normal, Normal thought process present and cooperative THOUGHT PROCESS: Normal thought process present Skin: COMMON NORMALS: no rashes or lesions noted and no wounds GENERAL SKIN EXAM: no rashes or lesions noted Course Vital Signs: Vital signs: Vital Signs Pulse Rate 98 10/29/21 22:31 Respiratory Rate 16 10/29/21 22:31 Blood Pressure 129/85 10/29/21 22:31 Pulse Oximetry 96 10/29/21 22:31 MDM - Chest Pain Medical Decision Making Patient presents here with withdrawals from methadone he feels much improved here after Suboxone. He is well-appearing here symptoms are resolved labs are normal he is requesting discharge stable for discharge he supposed to see a pain management tomorrow. Lab Data : 10/29/21 22:01 10/29/21 22:01 Laboratory Results WBC 18.6 10^3/uL (4.0-10.0) H 10/29/21 22:01 RBC 5.46 10^6/uL (4.1-5.3) H 10/29/21 22:01 Hgb 17.2 g/dL (11.7-16.6) H 10/29/21 22:01 Hct 48.0 % (42.0-52.0) 10/29/21 22:01 MCV 87.9 fl (80-94) 10/29/21 22:01 MCH 31.5 pg (28.0-34.0) 10/29/21 22:01 MCHC 35.8 g/dL (30.0-36.0) 10/29/21 22:01 RDW 12.2 % (12.1-15.1) 10/29/21 22:01 Plt Count 325 10^3/cmm (130-400) 10/29/21 22:01 MPV 9.5 fL (7.4-10.4) 10/29/21 22:01 Neut % (Auto) 81.7 % 10/29/21 22:01 Lymph % (Auto) 10.0 % 10/29/21 22:01 [place] % (Auto) 7.4 % 10/29/21 22:01 Eos % (Auto) 0.0 % 10/29/21 22:01 Baso % (Auto) 0.4 % 10/29/21 22:01 Neut # (Auto) 15.19 10^3/uL (1.8-7.7) H 10/29/21 22:01 Lymph # (Auto) 1.9 10^3/uL (0.8-4.8) 10/29/21 22:01 [place] # (Auto) 1.4 10^3/uL (0.2-0.9) H 10/29/21 22:01 Eos # (Auto) 0.0 10^3/uL (0.0-0.8) 10/29/21 22:01 Baso # (Auto) 0.1 10^3/uL (0.0-0.1) 10/29/21 22: Nucleated RBC % (auto) 0 % 10/29/21 22: Nucleated RBCs # 0.0 /100WBC 10/29/21 22:01 Sodium 138 mmol/L (136-145) 10/29/21 22: Potassium 3.8 mmol/L (3.5-5.1) 10/29/21 22: Chloride 98 mmol/L (98-107) 10/29/21 22:01 Carbon Dioxide 24 mmol/L (22-29) 10/29/21 22:01 Anion Gap 19.8 (5-19) H 10/29/21 22:01 BUN 24 mg/dL (6-20) H 10/29/21 22:01 Creatinine 1.0 mg/dL (0.7-1.2) 10/29/21 22:01 GFR Calculation 80.4 mL/min (90-130) L 10/29/21 22:01 Glucose 122 mg/dL (65-115) H 10/29/21 22:01 Calculated Osmolality 291 mOsm/kg (285-295) 10/29/21 22:01 Calcium 9.7 mg/dL (8.5-10.5) 10/29/21 22:01 Total Bilirubin 0.7 mg/dL (0.15-1.2) 10/29/21 22:01 AST 21 U/L (0-40) 10/29/21 22:01 ALT 14 U/L (0-41) 10/29/21 22:01 Alkaline Phosphatase 90 IU/L (40-130) 10/29/21 22:01 Troponin T Baseline 6 ng/L (0-15) 10/29/21 22:01 Total Protein 7.7 g/dL (6.6-8.7) 10/29/21 22:01 Albumin 5.5 g/dL (3.5-5.2) H 10/29/21 22:01 Globulin 2.2 g/dL (1.3-4.6) 10/29/21 22:01 EKG Data EKG 1: I personally reviewed and interpreted this EKG as follows: EKG interpretation date: 10/29/21 EKG interpretation time: 22:04 Interpretation: sinus tach hr [address] or t wave abnormalities qrs 90 Discharge Plan Discharge Patient Disposition: Home Clinical Impression: Methadone dependence Condition: Stable Prescriptions: No Action metoprolol tartrate 50 mg tablet 50 mg PO BID 0RF methadone 10 mg tablet 20 mg PO Q6H 30 Days Qty: 240 0RF Rx Instructions: fill on or after 10/07/21 multivitamin Tablet 1 tab PO DAILY 0RF trazodone 150 mg tablet 150 mg PO BEDTIME PRN (Reason: Sleep) 0RF Discharge Orders: Discharge ED (Routine); Ordered 10/29/21 Ordered By: Delia Klein Referrals: Kwan Nieves [Primary Care Provider] - Discharge Diet: Advance as tolerated Discharge Activity: Resume usual activity Coding Level of Care Code ED Coke Drawer for Chg Fwd Exam Comprehensive
[2021-10-29 22:31] VITALS: BP 129/85; PULSE 98; RESP 16; O2SAT 96
[2021-10-29 22:32] LABS: Troponin(5th) Baseline 6 ng/L (0-15)
[2021-10-29 22:36] LABS: Alanine Aminotransferase 14 U/L (0-41); Albumin Level 5.5 g/dL (3.5-5.2); Alkaline Phosphatase 90 IU/L (40-130); Anion Gap 19.8 (5-19); Aspartate Amino Transferase 21 U/L (0-40); Blood Urea Nitrogen 24 mg/dL (6-20); Calcium 9.7 mg/dL (8.5-10.5); Carbon Dioxide 24 mmol/L (22-29); Chloride 98 mmol/L (98-107); Globulin 2.2 g/dL (1.3-4.6); Glomerular Filtration Rate 80.4 mL/min (90-130); Glucose 122 mg/dL (65-115); Osmolality Calculated 291 mOsm/kg (285-295); Potassium 3.8 mmol/L (3.5-5.1); Sodium 138 mmol/L (136-145); Total Bilirubin 0.7 mg/dL (0.15-1.2); Total Protein 7.7 g/dL (6.6-8.7)
[2021-10-29 22:54] VITALS: BP 129/85; PULSE 122; RESP 21; O2SAT 99
[2021-10-29] MEDS: buprenorphine-naloxone 4-1 mg Film 1 EACH SUBLINGUAL (23:12)
== END 2021-10-29 23:30 | disposition home or self-care (01) ==
PROVIDERS: Emergency Provider Emergency Medicine; PCP Family Medicine
DX: F11.20 Opioid dependence, uncomplicated (principal); Z77.22 Contact with and (suspected) exposure to environmental tobacco smoke (acute) (chronic)
CPT/HCPCS: 71045; 80053; 84484; 85025; 93005; 96374; 96375; 99283; J0573; J2060; J2270

== ENCOUNTER 2021-10-30 09:16 | Inpatient (IN) | payer OTHER, SELFPAY ==
[2021-10-30 11:44] VITALS: BP 140/92; PULSE 145; RESP 16; TEMP 36.7; O2SAT 95
--- NOTE | 2021-10-30 12:41 | ED.C_ITS ---
HPI - Psych General: Chief Complaint: Psychiatric Symptoms Stated Complaint: WITHDRAWS Time Seen by Provider: 10/30/21 09:18 History of Present Illness: 45-year-old male presents to the emergency room with complaint of methadone withdrawal. He would only has been out of methadone for the last 4 days. He was in [place] and was seen in psychiatry department there and discharged home he used a shaving razor to cut up his arms in an attempt to kill himself. He was discharged from there and he came back to [place] with the expectation of being put on Suboxone. He was not able to get into see anybody for Suboxone so he came into the emergency room. When seen he is writhing around on the exam bed is difficult to get any history or exam from him because he will not stop twisting and turning. He complains of back pain. MD complaint: suicidal ideation Onset (ago): day(s) Duration: constant History of same: Yes Relieving factors: none Exacerbating factors: none Context: other (Stopped taking methadone) Associated psychiatric symptoms: depression and suicidal ideation Associated symptoms: Reports depression and suicidal ideation; Deny auditory hallucinations, visual hallucinations, delusions or homicidal idea tion If self harm: admits thoughts of self harm, has plan, has acted on plan and self-inflicted trauma Review of Systems Const: Denies: fever(s), chills, body aches, change in appetite, fatigue or malaise ENMT: Denies: throat pain, ear or mastoid pain, nasal discharge or nasal congestion Card: Denies: chest pain, edema, dyspnea on exertion or orthopnea Resp: Denies: dyspnea, productive cough or non-productive cough GI: Denies: abdominal pain, nausea, vomiting, diarrhea or constipation Skin/Breast: Denies: rash or pruritus Psych: Reports: depression and suicidal ideation; Denies: visual hallucinations, auditory hallucinations or homicidal ideation [facility] ED PFSH: Medical History Back pain, lumbosacral Chronic neck pain Encounter for long-term use of opiate analgesic Opioid contract exists Protrusion of cervical intervertebral disc Family History Other CAD (coronary artery disease) Social History (Reviewed 10/30/21 @ 17:14 by ROSIE Ayers Second hand smoke exposure: Yes Alcohol intake: never History of recent travel: No Physical Exam Const: GENERAL APPEARANCE: cooperative and comfortable ORIENTATION/CONSCIOUSNESS: Yes awake, Yes oriented to person, Yes oriented to place and Yes oriented to time HENMT: COMMON NORMALS: normocephalic, atraumatic and hearing grossly normal bilaterally HEAD & SCALP: normocephalic and atraumatic Neck/C-Spine: COMMON NORMALS: no JVD Resp: COMMON NORMALS: normal respiratory effort, No retractions, No use of accessory muscles and clear to auscultation bilaterally AUSCULTATION: clear to auscultation bilaterally Cardio: COMMON NORMALS: no JVD, regular rate, regular rhythm and No murmurs present (Cardio) RATE: regular rate RHYTHM: regular rhythm GI: COMMON NORMALS: Soft to palpation and No hepatosplenomegaly present AUSCULTATION: Yes normoactive bowel sounds PALPATION: Yes Soft to palpation, No Tenderness to palpation present (GI), No Guarding due to palpation present (GI) and Yes No hepatosplenomegaly present Extremity: COMMON NORMALS: full ROM, capillary refill normal and no pedal edema OTHER: Multiple shallow abrasions and superficial lacerations on the wrists and forear ms bilaterally Neuro: SENSORIUM/ORIENTATION: Yes oriented to person, Yes oriented to place and Yes oriented to time Psych: THOUGHT CONTENT: No delusions Skin: COMMON NORMALS: no rashes or lesions noted GENERAL SKIN EXAM: no rashes or lesions noted Course Vital Signs: Vital signs: Vital Signs Temperature 98.1 F 10/30/21 11:44 Pulse Rate 86 10/30/21 16:20 Respiratory Rate 22 H 10/30/21 16:20 Blood Pressure 132/75 10/30/21 13:15 Pulse Oximetry 99 10/30/21 16:20 MDM - Psych Medical Decision Making Patient evidently had gone to this rehab center and they had disposed of all of his methadone. He has not had any for 4 to 5 days now. He was given Ativan and clonidine in the emergency room I discussed with Dr. Turner. He is already made suicidal gestures and is now threatening again given his acute said withdrawal from methadone I think he is at high risk for carrying it out to a full level of lethality. Discussed Dr. Turner he concurs. Will admit on a 96-hour hold based on his lethality. We did check there are available physicians at [facility] they can put him on a Suboxone program. Lab Data : 10/30/21 13:15 10/30/21 13:15 Laboratory Results WBC 10.8 10^3/uL (4.0-10.0) H 10/30/21 13:15 RBC 5.58 10^6/uL (4.1-5.3) H 10/30/21 13:15 Hgb 17.3 g/dL (11.7-16.6) H 10/30/21 13:15 Hct 48.4 % (42.0-52.0) 10/30/21 13:15 MCV 86.7 fl (80-94) 10/30/21 13:15 MCH 31.0 pg (28.0-34.0) 10/30/21 13:15 MCHC 35.7 g/dL (30.0-36.0) 10/30/21 13:15 RDW 12.0 % (12.1-15.1) L 10/30/21 13:15 Plt Count 314 10^3/cmm (130-400) 10/30/21 13:15 MPV 10.1 fL (7.4-10.4) 10/30/21 13:15 Neut % (Auto) 76.6 % 10/30/21 13:15 Lymph % (Auto) 14.7 % 10/30/21 13:15 [place] % (Auto) 8.1 % 10/30/21 13:15 Eos % (Auto) 0.0 % 10/30/21 13:15 Baso % (Auto) 0.4 % 10/30/21 13:15 Neut # (Auto) 8.27 10^3/uL (1.8-7.7) H 10/30/21 13:15 Lymph # (Auto) 1.6 10^3/uL (0.8-4.8) 10/30/21 13:15 [place] # (Auto) 0.9 10^3/uL (0.2-0.9) 10/30/21 13:15 Eos # (Auto) 0.0 10^3/uL (0.0-0.8) 10/30/21 13:15 Baso # (Auto) 0.0 10^3/uL (0.0-0.1) 10/30/21 13:15 Nucleated RBC % (auto) 0 % 10/30/21 13:15 Nucleated RBCs # 0.0 /100WBC 10/30/21 13:15 Sodium 135 mmol/L (136-145) L 10/30/21 13:15 Potassium 3.8 mmol/L (3.5-5.1) 10/30/21 13:15 Chloride 95 mmol/L (98-107) L 10/30/21 13:15 Carbon Dioxide 21 mmol/L (22-29) L 10/30/21 13:15 Anion Gap 22.8 (5-19) H 10/30/21 13:15 BUN 22 mg/dL (6-20) H 10/30/21 13:15 Creatinine 0.7 mg/dL (0.7-1.2) 10/30/21 13:15 GFR Calculation 121.4 mL/min (90-130) 10/30/21 13:15 Glucose 99 mg/dL (65-115) 10/30/21 13:15 Calculated Osmolality 283 mOsm/kg (285-295) L 10/30/21 13:15 Calcium 10.7 mg/dL (8.5-10.5) H 10/30/21 13:15 Total Bilirubin 0.9 mg/dL (0.15-1.2) 10/30/21 13:15 AST 30 U/L (0-40) 10/30/21 13:15 ALT 17 U/L (0-41) 10/30/21 13:15 Alkaline Phosphatase 86 IU/L (40-130) 10/30/21 13:15 Total Protein 8.2 g/dL (6.6-8.7) 10/30/21 13:15 Albumin 5.4 g/dL (3.5-5.2) H 10/30/21 13:15 Globulin 2.8 g/dL (1.3-4.6) 10/30/21 13:15 Salicylates < 0.3 mg/dL (3-10) L 10/30/21 13:15 Urine Opiates Screen Positive ng/mL (Negative) H 10/30/21 15:02 Acetaminophen < 5.0 ug/mL (10-30) L 10/30/21 13:15 Ur Barbiturates Screen Negative ng/mL (Negative) 10/30/21 15:02 Ur Phencyclidine Scrn Negative ng/mL (Negative) 10/30/21 15:02 Ur Amphetamines Screen Negative ng/mL (Negative) 10/30/21 15:02 U Benzodiazepines Scrn Positive ng/mL (Negative) H 10/30/21 15:02 Urine Cocaine Screen Negative ng/mL (Negative) 10/30/21 15:02 U Marijuana (THC) Screen Positive ng/mL (Negative) H 10/30/21 15:02 Ethyl Alcohol < 10 mg/dL (0-10) 10/30/21 13:15 Discharge Plan Discharge Patient Disposition: Admitted As Inpatient Admit Provider: Candido Turner Clinical Impression: Suicidal ideation, Methadone dependence Condition: Stable Coding Level of Care Code ED Machine Tender for Prema Fwd Exam Comprehensive
[2021-10-30 13:15] VITALS: BP 132/75
[2021-10-30] MEDS: cloNIDine 0.1 mg Tablet PO ×2 (13:15→14:20)
[2021-10-30] MEDS: LORazepam 2 mg/mL INJ 1 mL IVP (13:15)
--- NOTE | 2021-10-30 13:22 | PC.NURSE ---
Pt states he is in pain. and having withdraws from methadone. pt states he was on pain management. states he can not live like this much longer. pt has plan to cut his self. pt states that if he was able to get the razor blade off yesterday he would not be here today. pt has cuts to nehemias arms. pt pacing around room. pt crying due to pain.
--- NOTE | 2021-10-30 13:33 | PC.NURSE ---
Pt states he wanted to talk to the doctor. Doctor does not want to give patient any other medications. pt states that is it. I am killing myself. Discharge me now. doctor placed pt on 96 hour hold.
[2021-10-30 13:39] LABS: Basophils % 0.4 %; Hematocrit 48.4 % (42.0-52.0); Hemoglobin 17.3 g/dL (11.7-16.6); Lymphocytes # 1.6 10^3/uL (0.8-4.8); Lymphocytes % 14.7 %; Mean Corpuscular HGB Conc 35.7 g/dL (30.0-36.0); Mean Corpuscular Volume 86.7 fl (80-94); Mean Platelet Volume 10.1 fL (7.4-10.4); Monocytes # 0.9 10^3/uL (0.2-0.9); Monocytes % 8.1 %; Neutrophils # 8.27 10^3/uL (1.8-7.7); Neutrophils % 76.6 %; Nucleated Red Blood Cells % 0 %; Platelet Count 314 10^3/cmm (130-400); Red Blood Count 5.58 10^6/uL (4.1-5.3); White Blood Count 10.8 10^3/uL (4.0-10.0)
[2021-10-30 14:07] LABS: Alanine Aminotransferase 17 U/L (0-41); Albumin Level 5.4 g/dL (3.5-5.2); Alkaline Phosphatase 86 IU/L (40-130); Anion Gap 22.8 (5-19); Aspartate Amino Transferase 30 U/L (0-40); Blood Urea Nitrogen 22 mg/dL (6-20); Calcium 10.7 mg/dL (8.5-10.5); Carbon Dioxide 21 mmol/L (22-29); Chloride 95 mmol/L (98-107); Globulin 2.8 g/dL (1.3-4.6); Glomerular Filtration Rate 121.4 mL/min (90-130); Glucose 99 mg/dL (65-115); Osmolality Calculated 283 mOsm/kg (285-295); Potassium 3.8 mmol/L (3.5-5.1); Sodium 135 mmol/L (136-145); Total Bilirubin 0.9 mg/dL (0.15-1.2); Total Protein 8.2 g/dL (6.6-8.7)
[2021-10-30 14:09] LABS: Acetaminophen < 5.0 ug/mL (10-30); Alcohol Level < 10 mg/dL (0-10); Salicylate < 0.3 mg/dL (3-10)
[2021-10-30] MEDS: LORazepam 2 mg Tablet PO (14:20)
[2021-10-30 15:22] LABS: Amphetamines Screen Urine Negative (Negative); Barbiturates Screen Urine Negative (Negative); Benzodiazepines Screen Urine Positive (Negative); Cocaine Screen Urine Negative (Negative); Opiate Screen Urine Positive (Negative); PCP Screen Urine Negative (Negative); THC Screen Urine Positive (Negative)
--- NOTE | 2021-10-30 15:35 | PC.NURSE ---
Pt pacing back and forth in room. wanting pain medication.
[2021-10-30 16:20] VITALS: PULSE 86; RESP 22; O2SAT 99
[2021-10-30 16:57] VITALS: BP 125/91; PULSE 104; RESP 16; TEMP 36.6; O2SAT 98
[2021-10-30] MEDS: LORazepam 1 mg Tablet PO (18:39)
[2021-10-30] MEDS: quetiapine 25 mg Tablet 50 MG PO (18:40)
[2021-10-30] MEDS: acetaminophen 325 mg Tablet 650 MG PO (18:40)
[2021-10-30] MEDS: metoprolol tartrate 50 mg Tablet PO (18:41)
[2021-10-30] MEDS: nicotine 2 mg Gum BUCCAL (20:35)
[2021-10-30] MEDS: hyDROXYzine 25 mg Capsule 50 MG PO (20:35)
[2021-10-30] MEDS: trazodone 150 mg Tablet PO (20:35)
[2021-10-30 21:15] VITALS: BP 126/91; PULSE 93; RESP 17; TEMP 36.7; O2SAT 97
[2021-10-31 05:37] VITALS: BP 127/79; PULSE 93; RESP 17; TEMP 36.8; O2SAT 95
--- NOTE | 2021-10-31 06:29 | PC.NURSE ---
Trazodone 150 mg PO given for sleep and Vistaril 50 mg for anxiety with good results.
--- NOTE | 2021-10-31 08:00 | W.PM.NPUH&PS ---
Providers/Chief Complaint Admitting Physician: Candido Turner MD Primary Care Provider: Kwan Nieves Chief Complaint: SI HPI NPU History of Present Illness Farhad Berkowitz is a 45 year old male who was admitted to the emergency department with the following report: Chief Complaint: Psychiatric Symptoms Stated Complaint: WITHDRAWS Time Seen by Provider: 10/30/21 09:18 History of Present Illness:?? 45-year-old male presents to the emergency room with complaint of methadone withdrawal.? He would only has been out of methadone for the last 4 days.? He was in [place] and was seen in psychiatry department there and discharged home he used a shaving razor to cut up his arms in an attempt to kill himself.? He was discharged from there and he came back to [place] with the expectation of being put on Suboxone.? He was not able to get into see anybody for Suboxone so he came into the emergency room.? When seen he is writhing around on the exam bed is difficult to get any history or exam from him because he will not stop twisting and turning.? He complains of back pain. complaint: suicidal ideation Onset (ago): day(s) Duration: constant History of same: Yes Relieving factors: none Exacerbating factors: none Context: other (Stopped taking methadone) Associated psychiatric symptoms: depression and suicidal ideation Associated symptoms: Reports depression and suicidal ideation; Deny auditory hallucinations, visual hallucinations, delusions or homicidal ideation If self harm: admits thoughts of self harm, has plan, has acted on plan and self-inflicted trauma He was admitted to the neuropsychiatric unit for definitive treatment of those issues. An organized interview was mostly impossible secondary to the great level of distress that Farhad presented with. He endorsed being in significant withdrawal and from the history we could uncover weekly emergency room reports and his reports likely he should be. Somewhere in the last week or so [facility] had [facility] and they had reportedly flushed his medications which included his methadone. He reports he has been on methadone for 14 years, however we know he is been on methadone for extended period of time. As recently as a couple years ago we know he was on 160 mg for pain management at 40 mg 4 times a day. He was recently decreased in dose but is unsure how recently 40 mg 4 times a day. He reports that he has not had any medication since possibly Wednesday or earlier. He spent most of the time lamenting about his withdrawal and trying to negotiate away for Suboxone to be started. We discussed the need for as long. Is possible since his last dose of methadone to avoid precipitating withdrawal. He is convinced that he has had doses of Suboxone without any ill effect. We also explained to him that the only way he would leave with some Suboxone would be if we had an outpatient source to write a prescription so we know the treatment will be continued we discussed that we would not averse to getting some Suboxone to assist in his withdrawal as long as you know we will make the situation worse. We discussed that even we have to take some additional time for considering that dose. He endorses a long history of significant medical comorbidities see ED note for additional details. He could not give any explanation of how to manage the pain without the methadone he then reported that he feels the Suboxone might help him with his pain more than the methadone dose. Discussed the risk-benefit and alternatives of using Ativan, clonidine, Seroquel and other sleep agents to assist in his withdrawal while we were considering the possibility of Suboxone. We also discussed the depression and reported anxiety and lethality which we agreed would be best addressed once his withdrawal was actually under control. Meds NPU Home Medications Medication Instructions Recorded Confirmed Last Taken Type metoprolol tartrate 50 mg tablet 50 mg PO BID 11/10/19 10/30/21 10/03/21 History multivitamin 1 tab PO DAILY 10/03/21 10/30/21 Unknown History trazodone 150 mg tablet 150 mg PO BEDTIME PRN 10/03/21 10/30/21 Unknown History methadone 10 mg tablet 20 mg PO Q6H 30 Days #240 tab MDD 10/07/21 10/30/21 Unknown Rx SEE PHARMACY COMMENT clonidine HCl 0.1 mg tablet 0.1 mg PO DAILY PRN 10/30/21 10/30/21 Unknown History Allergies Allergy/AdvReac Type Severity Reaction Status Date / Time No Known Allergies Allergy Verified 10/30/21 11:49 PFSH NPU PFSH: Medical History Back pain, lumbosacral Chronic neck pain Encounter for long-term use of opiate analgesic Opioid contract exists Protrusion of cervical intervertebral disc Family History Other CAD (coronary artery disease) Social History Second hand smoke exposure: Yes Alcohol intake: never History of recent travel: No Mental Status Exam MSE Comments: This is an underweight white male in hospital scrubs absent dentition with warming and eye contact. No abnormal movements except for significant psychomotor agitation. Somewhat cooperative with exam in moderate to extreme distress. Speech was limited and increased rate and normal volume. Mood described as horrible, affect congruent. Thought process organized. Thought content: Patient endorsed suicidal thinking against the backdrop of his horrible withdrawal but denied homicidal ideation, there are no delusions reported or noted, he denied any auditory visual hallucinations. Attention and concentration were impaired and memory was somewhat reliable but none were formally tested. He is alert and oriented x3. Insight and judgment are limited and impulse control is limited. Vitals/I&O/Wt Last Vital Signs Temp 98.3 F 10/31/21 05:37 Pulse 93 10/31/21 05:37 Resp 17 10/31/21 05:37 BP 127/79 10/31/21 05:37 Pulse Ox 95 10/31/21 05:37 Weight last 48 hrs Weight 65.771 kg Data NPU : 10/30/21 13:15 10/30/21 13:15 A&P Assessment and plan (1) Methadone dependence: Status: Acute (2) Suicidal ideation: Status: Acute (3) Medical marijuana use: Status: Acute (4) Chronic neck pain: Status: Chronic (5) Opioid contract exists: Status: Chronic (6) Encounter for long-term use of opiate analgesic: Status: Chronic (7) Back pain, lumbosacral: Status: Chronic (8) Protrusion of cervical intervertebral disc: Status: Chronic (9) Depression: Status: Acute (10) Anxiety: Status: Acute Plan This is a 45-year-old white male with a long history of depression, anxiety and significant addiction as well as significant medical comorbidities with opiate dependence secondary to pain management currently in withdrawal after reportedly having his medication flushed at a sober living facility who presents open to assistance with his withdrawal as well as with concerns for safety given how desperate he feels. 1. Continue current medication. Give clonidine, Ativan, Seroquel and trazodone to assist with withdrawal symptoms and will consider antidepressant once we get through withdrawal. We will consider Suboxone in the next 48 hours. 2. Continue every 15 minute checks for safety. 3. Encourage individual, group and milieu therapies. 4. Encourage sober living treatment after discharge at the highest level of care to which he is willing to commit. Involuntary Hold Information 96 Hour Hold: 96 Hour Involuntary Admission: Yes 96 Hour Hold Ending Date: 11/05/21 96 Hour Hold Ending Time: 14:15 Attestations NPU Medical Necessity Statement*: Inpatient hospitalization is medically necessary and the clinically appropriate intervention at this time. We will monitor medication to make changes as indicated. Patient will be in the hospital for over two midnights. Likely length of stay 3 to 5 days. Coding Level of Care Code Acute Washing Machine Mechanic for Prema Fwd Diagnoses Methadone dependence F11.20 Suicidal ideation R45.851 Medical marijuana use Z79.899 Chronic neck pain M54.2; G89.29 Opioid contract exists Z79.891 Encounter for long-term use of opiate analgesic Z79.891 Back pain, lumbosacral M54.5 Protrusion of cervical intervertebral disc M50.20 Depression F32.A Anxiety F41.9
[2021-10-31] MEDS: multivitamin therapeutic Tablet 1 TAB PO (08:08)
[2021-10-31] MEDS: thiamine 100 mg Tablet PO (08:08)
[2021-10-31] MEDS: metoprolol tartrate 50 mg Tablet PO ×2 (08:08→17:35)
[2021-10-31] MEDS: nicotine 2 mg Gum BUCCAL ×3 (08:08→17:36)
[2021-10-31] MEDS: folic acid 1 mg Tablet PO (08:09)
[2021-10-31] MEDS: LORazepam 2 mg Tablet PO (08:10)
[2021-10-31] MEDS: quetiapine 25 mg Tablet 50 MG PO ×4 (09:06→23:38)
[2021-10-31] MEDS: cloNIDine 0.1 mg Tablet PO ×3 (09:07→21:10)
[2021-10-31] MEDS: acetaminophen 325 mg Tablet 650 MG PO ×2 (12:25→18:09)
--- NOTE | 2021-10-31 13:23 | PC.NURSE ---
PRN Patient c/o withdraw symptoms in AM. Reported restlessness, anxiety, and pain. Took Clonidine, Seroquel, and Ativan this morning to good effect. Again after lunch patient took PRN Seroquel adn Tylenol to good effect as well. Patient has remained withdrawn to room most of day this far.
[2021-10-31 13:55] VITALS: BP 118/83; PULSE 84; RESP 16; TEMP 36.5; O2SAT 98
[2021-10-31] MEDS: hyDROXYzine 25 mg Capsule 50 MG PO ×2 (14:12→21:11)
[2021-10-31] MEDS: LORazepam 1 mg Tablet PO ×3 (14:12→21:12)
[2021-10-31] MEDS: OLANZapine 5 mg ODT PO (15:02)
[2021-10-31] MEDS: ibuprofen 800 mg tablet PO (16:05)
[2021-10-31 16:12] VITALS: BP 127/79
[2021-10-31 21:08] VITALS: BP 107/74; PULSE 79; RESP 15; TEMP 36.5; O2SAT 99
[2021-10-31 21:10] VITALS: BP 107/74
[2021-10-31] MEDS: trazodone 150 mg Tablet PO (21:12)
[2021-11-01] MEDS: LORazepam 1 mg Tablet PO ×5 (03:33→22:16)
--- NOTE | 2021-11-01 05:43 | PC.NURSE ---
This nurse removed dressing from patient's left arm, multiple lacerations noted. Lacerations cleansed with NS and patted dry. Lacerations noted to be scabbed over with no drainage, left arm left open to air. Pt tolerated well.
[2021-11-01 06:00] VITALS: BP 129/81; PULSE 83; RESP 16; TEMP 36.4; O2SAT 96
[2021-11-01] MEDS: nicotine 2 mg Gum BUCCAL ×2 (08:08→09:53)
[2021-11-01] MEDS: metoprolol tartrate 50 mg Tablet PO ×2 (09:51→17:31)
[2021-11-01] MEDS: quetiapine 25 mg Tablet 50 MG PO ×3 (09:51→17:32)
[2021-11-01] MEDS: multivitamin therapeutic Tablet 1 TAB PO (09:51)
[2021-11-01] MEDS: acetaminophen 325 mg Tablet 650 MG PO ×2 (09:51→17:30)
[2021-11-01 09:52] VITALS: BP 129/81
[2021-11-01] MEDS: folic acid 1 mg Tablet PO (09:52)
[2021-11-01] MEDS: thiamine 100 mg Tablet PO (09:52)
[2021-11-01] MEDS: cloNIDine 0.1 mg Tablet PO ×4 (09:52→20:20)
[2021-11-01] MEDS: ibuprofen 800 mg tablet PO (13:21)
[2021-11-01 13:22] VITALS: BP 117/86
[2021-11-01 14:00] VITALS: BP 124/82; PULSE 86; RESP 18; TEMP 36.7; O2SAT 98
[2021-11-01 17:31] VITALS: BP 118/86
--- NOTE | 2021-11-01 18:34 | P.NPUPN_ITS ---
Subjective NPU Subjective: Interval history: Patient continued today as he did yesterday lamenting on his withdrawal symptoms and begging for something stronger, i.e. Suboxone to manage his sympto ms/withdrawal symptoms. We continued standard withdrawal medication and discussed the possibility of a trial of a Suboxone dose later to see if the precipitate withdrawal or helps him symptomatically. Mental Status Exam MSE Comments: This is an underweight white male in hospital scrubs absent dentition with warming and eye contact.? No abnormal movements except for significant psychomotor agitation.? Somewhat cooperative with exam in moderate to extreme distress.? Speech was limited and increased rate and normal volume.? Mood described as horrible, affect congruent.? Thought process organized.? Th ought content: Patient endorsed suicidal thinking against the backdrop of his horrible withdrawal but denied homicidal ideation, there are no delusions reported or noted, he denied any auditory visual hallucinations.? Attention and concentration were impaired and memory was somewhat reliable but none were formally tested.? He is alert and oriented x3.? Insight and judgment are limited and impulse control is limited. Vitals/I&O/Wt Last Vital Signs Temp 98.1 F 11/01/21 14:00 Pulse 86 11/01/21 14:00 Resp 18 11/01/21 14:00 BP 118/86 11/01/21 17:31 Pulse Ox 98 11/01/21 14:00 Data NPU : 10/30/21 13:15 10/30/21 13:15 A&P Assessment and plan (1) Anxiety: Status: Acute (2) Depression: Status: Acute (3) Methadone dependence: Status: Acute (4) Suicidal ideation: Status: Acute (5) Medical marijuana use: Status: Acute (6) Chronic neck pain: Status: Chronic (7) Opioid contract exists: Status: Chronic (8) Encounter for long-term use of opiate analgesic: Status: Chronic (9) Back pain, lumbosacral: Status: Chronic (10) Protrusion of cervical intervertebral disc: Status: Chronic Plan This is a 45-year-old white male with a long history of depression, anxiety and significant addiction as well as significant medical comorbidities with opiate dependence secondary to pain management currently in withdrawal after reportedly having his medication flushed at a sober living facility who presents open to assistance with his withdrawal as well as with concerns for safety given how desperate he feels. 1.? Continue current medication.? Give clonidine, Ativan, Seroquel and trazodone to assist with withdrawal symptoms and will consider antidepressant once we get through withdrawal.? We will consider Suboxone later today. 2.? Continue every 15 minute checks for safety. 3.? Encourage individual, group and milieu therapies. 4.? Encourage sober living treatment after discharge at the highest level of care to which he is willing to commit. Involuntary Hold Information 96 Hour Hold: 96 Hour Involuntary Admission: Yes 96 Hour Hold Ending Date: 11/05/21 96 Hour Hold Ending Time: 14:15 Attestations NPU Medical Necessity Statement*: Inpatient hospitalization is medically necessary and the clinically appropriate intervention at this time. We will monitor medication to make changes as indicated. Likely length of stay 2-4 days. Coding Level of Care Code Acute Printer Repair Technician for Prema Fwd Diagnoses Anxiety F41.9 Depression F32.A Methadone dependence F11.20 Suicidal ideation R45.851 Medical marijuana use Z79.899 Chronic neck pain M54.2; G89.29 Opioid contract exists Z79.891 Encounter for long-term use of opiate analgesic Z79.891 Back pain, lumbosacral M54.5 Protrusion of cervical intervertebral disc M50.20
[2021-11-01 21:24] VITALS: BP 136/80; PULSE 90; RESP 16; TEMP 36.6; O2SAT 98
[2021-11-01] MEDS: trazodone 150 mg Tablet PO (22:16)
[2021-11-02] VITALS (7 sets, daily range): BP systolic 104–155; BP diastolic 66–71; PULSE 67–87; RESP 16–18; TEMP 36.3–36.7; O2SAT 96–98; BMI 21.4
[2021-11-02] MEDS: LORazepam 1 mg Tablet PO ×2 (04:34→15:49)
[2021-11-02] MEDS: nicotine 2 mg Gum BUCCAL (08:02)
[2021-11-02] MEDS: quetiapine 25 mg Tablet 50 MG PO ×3 (08:02→22:52)
[2021-11-02] MEDS: buprenorphine-naloxone 4-1 mg Film 1 EACH SUBLINGUAL ×2 (08:02→20:53)
[2021-11-02] MEDS: thiamine 100 mg Tablet PO (08:03)
[2021-11-02] MEDS: metoprolol tartrate 50 mg Tablet PO ×2 (08:03→18:41)
[2021-11-02] MEDS: folic acid 1 mg Tablet PO (08:03)
[2021-11-02] MEDS: cloNIDine 0.1 mg Tablet PO ×4 (08:03→20:53)
[2021-11-02] MEDS: multivitamin therapeutic Tablet 1 TAB PO (08:03)
[2021-11-02] MEDS: ibuprofen 800 mg tablet PO (08:03)
--- NOTE | 2021-11-02 14:17 | P.NPUPN_ITS ---
Subjective NPU Subjective: Interval history: Patient presents today reporting that the addition of Suboxone did not precipitate withdrawal but gave him some relief at least 8 hours. We again clar ified that in the next 48 hours we need to find who his provider is going to be and make sure that they either have a prescription or an appointment for him to initiate medication with him and we will not be discharging him with any prescriptions for Suboxone. We agreed that we would get another dose in today and see how he is feeling and possibly discuss antidepressants or other agents. Mental Status Exam MSE Comments: This is an underweight white male in hospital scrubs absent dentition with limited grooming and eye contact.? No abnormal movements except for decreasing psychomotor agitation.? More cooperative with exam in mild distress.? Speech was more spontaneous and more normal rate and volume.? Mood described as definitely feeling better, affect congruent.? Thought process organized.? Thought content: Patient denied current suicidal or homicidal ideation, there are no delusions reported or noted, he denied any auditory visual hallucinations.? Attention and concentration were improving and memory was somewhat reliable but none were formally tested.? He is alert and oriented x3.? Insight and judgment are limited and impulse control is limited. Vitals/I&O/Wt Last Vital Signs Temp 97.3 F 11/02/21 14:00 Pulse 85 11/02/21 14:00 Resp 16 11/02/21 14:00 BP 115/71 11/02/21 14:00 Pulse Ox 96 11/02/21 14:00 Weight last 48 hrs Weight 65.771 kg Data NPU : 10/30/21 13:15 10/30/21 13:15 A&P Assessment and plan (1) Anxiety: Status: Acute (2) Depression: Status: Acute (3) Methadone dependence: Status: Acute (4) Suicidal ideation: Status: Acute (5) Medical marijuana use: Status: Acute (6) Chronic neck pain: Status: Chronic (7) Opioid contract exists: Status: Chronic (8) Back pain, lumbosacral: Status: Chronic (9) Protrusion of cervical intervertebral disc: Status: Chronic Plan This is a 45-year-old white male with a long history of depression, anxiety and significant addiction as well as significant medical comorbidities with opiate dependence secondary to pain management currently in withdrawal after reportedly having his medication flushed at a sober living facility who presents open to assistance with his withdrawal as well as with concerns for safety given how desperate he feels. 1.? Continue current medication.? We will start eliminating clonidine, Ativan, Seroquel and trazodone to assist with withdrawal symptoms with the initiation of the Suboxone and will consider antidepressant once we get through withdrawal.? Initiated Suboxone 4/ twice daily as needed. 2.? Continue every 15 minute checks for safety. 3.? Encourage individual, group and milieu therapies. 4.? Encourage sober living treatment after discharge at the highest level of care to which he is willing to commit. 5. We will work with treatment team to assure he has an outpatient Suboxone provider for discharge. Involuntary Hold Information 96 Hour Hold: 96 Hour Involuntary Admission: Yes 96 Hour Hold Ending Date: 11/05/21 96 Hour Hold Ending Time: 14:15 Attestations NPU Medical Necessity Statement*: Inpatient hospitalization is medically necessary and the clinically appropriate intervention at this time. We will monitor medication to make changes as indicated.? Likely length of stay 1-3 days. Coding Level of Care Code Acute Optical Designer for Prema Fwd Diagnoses Anxiety F41.9 Depression F32.A Methadone dependence F11.20 Suicidal ideation R45.851 Medical marijuana use Z79.899 Chronic neck pain M54.2; G89.29 Opioid contract exists Z79.891 Back pain, lumbosacral M54.5 Protrusion of cervical intervertebral disc M50.20
[2021-11-02] MEDS: trazodone 150 mg Tablet PO (20:55)
[2021-11-02] MEDS: OLANZapine 5 mg ODT PO (23:58)
--- NOTE | 2021-11-02 23:59 | PC.NURSE ---
Patient with c/o of anxiety and unable to sleep. Zydis 5 mg sl given.
[2021-11-03 05:11] VITALS: BP 104/68; PULSE 62; RESP 18; TEMP 36.6; O2SAT 99
[2021-11-03] MEDS: thiamine 100 mg Tablet PO (08:01)
[2021-11-03] MEDS: acetaminophen 325 mg Tablet 650 MG PO (08:01)
[2021-11-03] MEDS: buprenorphine-naloxone 4-1 mg Film 1 EACH SUBLINGUAL ×2 (08:01→20:14)
[2021-11-03] MEDS: metoprolol tartrate 50 mg Tablet PO ×2 (08:01→17:37)
[2021-11-03] MEDS: multivitamin therapeutic Tablet 1 TAB PO (08:02)
[2021-11-03] MEDS: folic acid 1 mg Tablet PO (08:04)
[2021-11-03 08:08] VITALS: BP 126/80
--- NOTE | 2021-11-03 12:20 | NPU.GN ---
[facility] Group Topic:[place] Group Activity General Mood of Group:Farhad did attend and participate in group today. His hygiene was good. He did not socialize much.
[2021-11-03 13:44] VITALS: BP 110/66
[2021-11-03 14:00] VITALS: BP 120/67; PULSE 66; RESP 16; TEMP 36.5; O2SAT 99
[2021-11-03] MEDS: quetiapine 25 mg Tablet 50 MG PO ×2 (14:14→20:14)
--- NOTE | 2021-11-03 14:52 | PC.NURSE ---
PRN Patient took PRN Tylenol for generalized pain with morning meds at 0800 with good effect. Took PRN Seroquel for anxiety at 1414 that has been effective. Reports that withdraws have decreased drastically since starting the Suboxone.
[2021-11-03] MEDS: OLANZapine 5 mg ODT PO ×2 (15:43→23:37)
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
[2021-11-03 20:13] VITALS: BP 113/74
[2021-11-03] MEDS: cloNIDine 0.1 mg Tablet PO (20:13)
[2021-11-03 21:59] VITALS: BP 113/74; PULSE 66; RESP 16; TEMP 36.3; O2SAT 98
[2021-11-03] MEDS: trazodone 150 mg Tablet PO (22:24)
[2021-11-04 06:00] VITALS: BP 129/67; PULSE 74; RESP 17; TEMP 36.9; O2SAT 100
--- NOTE | 2021-11-04 06:23 | W.PM.NPUDCS ---
Diagnoses at Discharge Discharge Diagnosis (1) Anxiety: Status: Acute (2) Depression: Status: Acute (3) Methadone dependence: Status: Acute (4) Medical marijuana use: Status: Acute (5) Chronic neck pain: Status: Chronic (6) Opioid contract exists: Status: Chronic (7) Back pain, lumbosacral: Status: Chronic (8) Protrusion of cervical intervertebral disc: Status: Chronic Reason for Visit Reason for Visit: SI Brief History: History of Present Illness Farhad Berkowitz is a 45 year old male who was admitted to the emergency department with the following report: Chief Complaint: P sychiatric Symptom s Stated Complaint : WITHDRAWS Time S een by Provider: 0 10/30/21 09:18? ? History of Present Illness:??? 45-year-old male presents to the em ergency room with complaint of metha done withdrawal.? He would only has been out of methad one for the last 4 days.? He was in [place] and w as seen in psychia try department the and discharged home he used a sha ving razor to cut up his arms in an attempt to kill hi mself.? He was dis charged from there and he came back to [facility] h the expectation of being put on [place] boxone.? He was no t able to get into see anybody for S uboxone so he came into the emergenc y room.? When seen he is writhing ar ound on the exam b ed is difficult to get any history o r exam from him be cause he will not stop twisting and turning.? He compl ains of back pain. complaint: suic idal ideation Onse t (ago): day(s) Du ration: constant H istory of same: Ye s Relieving factor s: none Exacerbati ng factors: none C ontext: other (Sto pped taking methad one) Associated ps ychiatric symptoms : depression and s uicidal ideation A ssociated symptoms : Reports depressi on and suicidal id eation; Deny audit ory hallucinations , visual hallucina tions, delusions o r homicidal ideati on If self harm: a dmits thoughts of self harm, has marcos n, has acted on pl an and self-inflic shaheed trauma He was admitted to the neuropsychiatric unit for definitive treatment of those issues.? An organized interview was mostly impossible secondary to the great level of distress that Farhad presented with.? He endorsed being in significant withdrawal and from the history we could uncover weekly emergency room reports and his reports likely he should be.? Somewhere in the last week or so he had gone [facility] and they had reportedly flushed his medications which included his methadone.? He reports he has been on methadone for 14 years, however we know he is been on methadone for extended period of time.? As recently as a couple years ago we know he was on 160 mg for pain management at 40 mg 4 times a day.? He was recently decreased in dose but is unsure how recently 40 mg 4 times a day.? He reports that he has not had any medication since possibly Wednesday or earlier.? He spent most of the time lamenting about his withdrawal and trying to negotiate away for Suboxone to be started.? We discussed the need for as long.? Is possible since his last dose of methadone to avoid precipitating withdrawal.? He is convinced that he has had doses of Suboxone without any ill effect.? We also explained to him that the only way he would leave with some Suboxone would be if we had an outpatient source to write a prescription so we know the treatment will be continued we discussed that we would not averse to getting some Suboxone to assist in his withdrawal as long as you know we will make the situation worse.? We discussed that even we have to take some additional time for considering that dose.? He endorses a long history of significant medical comorbidities see ED note for additional details.? He could not give any explanation of how to manage the pain without the methadone he then reported that he feels the Suboxone might help him with his pain more than the methadone dose.? Discussed the risk-benefit and alternatives of using Ativan, clonidine, Seroquel and other sleep agents to assist in his withdrawal while we were considering the possibility of Suboxone.? We also discussed the depression and reported anxiety and lethality which we agreed would be best addressed once his withdrawal was actually under control. Hospital Course Hospital Course He slowly acclimated to the individual, group and milieu therapies provided. Spent the initial phase here writhing around in complaining about his opiate withdrawal. Eventually we got further away from his last opiate use we did find some relief with Suboxone and was able to get him an appointment on the day of release with evaluation and treatment of the appropriate with Suboxone at [facility].he had marked improvement and was able to contract for safety outside the hospital prior to discharge. During the hospitalization, patient had routine laboratory studies which were within normal limits except for few outliers. Additionally there was a general medical evaluation which was also within normal limits and revealed no new acute processes. Discharge Summary: At the time of discharge, he denied psychosis or lethality. Mood and anxiety were well managed. Patient endorsed a plan to avoid all drugs of abuse and follow-up with the aftercare recommendations of the treatment team. Patient was evaluated and deemed to be absent credible lethality, and had achieved the maximum benefit from an inpatient hospitalization, so was discharged. Involuntary Hold Information 96 Hour Hold: 96 Hour Involuntary Admission: Yes 96 Hour Hold Ending Date: 11/05/21 96 Hour Hold Ending Time: 14:15 Mental Status Exam MSE Comments: This is an underweight white male in hospital scrubs absent dentition with adequate grooming and eye contact.? With multiple cuts on his forearms that were self-inflicted.? No abnormal movements except for resolving psychomotor agitation.? Cooperative with exam in no acute distress.? Speech was more spontaneous and more normal rate and volume.? Mood described as better and appreciative affect congruent.? Thought process organized.? Thought content: Patient denied current suicidal or homicidal ideation, there are no delusions reported or noted, he denied any auditory visual hallucinations.? Attention and concentration were improving and memory was somewhat reliable but none were formally tested.? He is alert and oriented x3.? Insight and judgment are limited, but improving and impulse control is improving. Discharge Data Studies Completed and Pending: Laboratory Results WBC 10.8 10^3/uL (4.0 -10.0) H 10/30/21 13:15 RBC 5.58 10^6/uL (4.1 -5.3) H 10/30/21 13:15 Hgb 17.3 g/dL (11.7-1 6.6) H 10/30/21 13:15 Hct 48.4 % (42.0-52.0 ) 10/30/21 13:15 MCV 86.7 fl (80-94) 10/30/21 13:15 MCH 31.0 pg (28.0-34. 0) 10/30/21 13:15 MCHC 35.7 g/dL (30.0-3 6.0) 10/30/21 13:15 RDW 12.0 % (12.1-15.1 ) L 10/30/21 13:15 Plt Count 314 10^3/cmm (130 -400) 10/30/21 13:15 MPV 10.1 fL (7.4-10.4 ) 10/30/21 13:15 Neut % (Auto) 76.6 % 10/30/21 13:15 Lymph % (Auto) 14.7 % 10/30/21 13:15 [place] % (Auto) 8.1 % 10/30/21 13:15 Eos % (Auto) 0.0 % 10/30/21 13:15 Baso % (Auto) 0.4 % 10/30/21 13:15 Neut # (Auto) 8.27 10^3/uL (1.8 -7.7) H 10/30/21 13:15 Lymph # (Auto) 1.6 10^3/uL (0.8- 4.8) 10/30/21 13:15 [place] # (Auto) 0.9 10^3/uL (0.2- 0.9) 10/30/21 13:15 Eos # (Auto) 0.0 10^3/uL (0.0- 0.8) 10/30/21 13:15 Baso # (Auto) 0.0 10^3/uL (0.0- 0.1) 10/30/21 13:15 Nucleated RBC % (a uto) 0 % 10/30/21 13:15 Nucleated RBCs # 0.0 /100WBC 10/30/21 13:15 Sodium 135 mmol/L (136-1 45) L 10/30/21 13:15 Potassium 3.8 mmol/L (3.5-5 .1) 10/30/21 13:15 Chloride 95 mmol/L (98-107 ) L 10/30/21 13:15 Carbon Dioxide 21 mmol/L (22-29) L 10/30/21 13:15 Anion Gap 22.8 (5-19) H 10/30/21 13:15 BUN 22 mg/dL (6-20) H 10/30/21 13:15 Creatinine 0.7 mg/dL (0.7-1. 2) 10/30/21 13:15 GFR Calculation 121.4 mL/min (90- 130) 10/30/21 13:15 Glucose 99 mg/dL (65-115) 10/30/21 13:15 Calculated Osmolal ity 283 mOsm/kg (285- 295) L 10/30/21 13:15 Calcium 10.7 mg/dL (8.5-1 0.5) H 10/30/21 13:15 Total Bilirubin 0.9 mg/dL (0.15-1 .2) 10/30/21 13:15 AST 30 U/L (0-40) 10/30/21 13:15 ALT 17 U/L (0-41) 10/30/21 13:15 Alkaline Phosphata se 86 IU/L (40-130) 10/30/21 13:15 Total Protein 8.2 g/dL (6.6-8.7 ) 10/30/21 13:15 Albumin 5.4 g/dL (3.5-5.2 ) H 10/30/21 13:15 Globulin 2.8 g/dL (1.3-4.6 ) 10/30/21 13:15 Salicylates < 0.3 mg/dL (3-10 ) L 10/30/21 13:15 Urine Opiates Scre en Positive ng/mL (N egative) H 10/30/21 15:02 Acetaminophen < 5.0 ug/mL (10-3 0) L 10/30/21 13:15 Ur Barbiturates Sc reen Negative ng/mL (N egative) 10/30/21 15:02 Ur Phencyclidine S crn Negative ng/mL (N egative) 10/30/21 15:02 Ur Amphetamines Sc reen Negative ng/mL (N egative) 10/30/21 15:02 U Benzodiazepines Scrn Positive ng/mL (N egative) H 10/30/21 15:02 Urine Cocaine Scre en Negative ng/mL (N egative) 10/30/21 15:02 U Marijuana (THC) Screen Positive ng/mL (N egative) H 10/30/21 15:02 Ethyl Alcohol < 10 mg/dL (0-10) 10/30/21 13:15 Vitals: Last Vital Signs Temp 97.4 F L 11/03/21 21:59 Pulse 66 11/03/21 21:59 Resp 16 11/03/21 21:59 BP 113/74 11/03/21 21:59 Pulse Ox 98 11/03/21 21:59 Discharge Plan Discharge Patient Disposition: Home Condition: Stable Prescriptions: Continued metoprolol tartrate 50 mg tablet 50 mg PO BID 0RF clonidine HCl 0.1 mg tablet 0.1 mg PO DAILY PRN (Reason: Agitation) 0RF multivitamin Tablet 1 tab PO DAILY 0RF trazodone 150 mg tablet 150 mg PO BEDTIME PRN (Reason: Sleep) 0RF Discontinued methadone 10 mg tablet 20 mg PO Q6H MDD SEE PHARMACY COMMENT 30 Days Qty: 240 0RF Rx Instructions: fill on or after 10/07/21 Discharge Orders: Discharge Order (Routine); Ordered 11/04/21 Ordered By: Candido Turner Referrals: Kwan Nieves [Primary Care Provider] - Discharge Diet: Regular Discharge Activity: Resume usual activity Patient Instructions: Fall Prevention (DC), Opioid Safety Discharge Attestations NPU Time Spent in Discharge Care*: less than 30 min Specific Discharge Activities: Specific discharge activities: educating patient, discussing with oil field caser/social workers/dc planners, documenting/other paperwork and evaluating patient/reviewing data Coding Level of Care Code Acute Chg FW DC note Diagnoses Anxiety F41.9 Depression F32.A Methadone dependence F11.20 Medical marijuana use Z79.899 Chronic neck pain M54.2; G89.29 Opioid contract exists Z79.891 Back pain, lumbosacral M54.5 Protrusion of cervical intervertebral disc M50.20
[2021-11-04 07:03] VITALS: BP 129/67; PULSE 74; RESP 17; TEMP 36.9; O2SAT 100
[2021-11-04] MEDS: ibuprofen 800 mg tablet PO (07:09)
[2021-11-04] MEDS: buprenorphine-naloxone 4-1 mg Film 1 EACH SUBLINGUAL (07:10)
== END 2021-11-04 07:27 | disposition home or self-care (01) | DRG 897 ==
LOC: ER 12:44 → NP 16:06
PROVIDERS: Physician Assistant; Admitting Provider Psychiatry & Neurology Psychiatry; Emergency Provider Family Medicine; PCP Family Medicine; Visit Provider Psychiatry & Neurology Psychiatry
DX: F11.23 Opioid dependence with withdrawal (principal); R45.851 Suicidal ideations; F41.9 Anxiety disorder, unspecified; F32.A Depression, unspecified; G89.29 Other chronic pain; M50.20 Other cervical disc displacement, unspecified cervical region; M54.50 Low back pain, unspecified
CPT/HCPCS: 80053; 80306; 80307; 85025; 96372; 96374; 97165; 99285; J0573; J2060; J3411